=== PATIENT | male | born 1960 | race Caucasian/White ===

== ENCOUNTER 2016-03-08 07:11 | Emergency (ER) | payer BC ==
[2016-03-08 07:34] VITALS: RESP 18
[2016-03-08] MEDS ORDERED: ASPIRIN 81 MG CHEW PO STA (07:36)
--- NOTE | 2016-03-08 07:40 | ED ---
Chest Pain HPI - General Chief Complaint: Chest Pain Stated Complaint: chest pain Time Seen by Provider: 03/08/16 07:30 Source: patient, RN notes reviewed Mode of arrival: ambulatory Limitations: no limitations - History of Present Illness Initial Comments: This patient is a 56-year-old man who presents to be evaluated for chest pains of been going on over the past day to 2. He indicates substernal area and states that he now also has pain in his right shoulder. The patient believes he may have injured his shoulder while working. Patient had seen his physician earlier and was started on medication for he believes bronchitis. MD Complaint: chest pain -: days(s) Pain Location: substernal Pain Radiation: RUE (Right shoulder) Severity: moderate Quality: aching Consistency: constant Improves With: nothing Worsens With: nothing Other Symptoms: cough - Related Data Home Medications Medication Instructions Recorded Confirmed ALPRAZolam [Xanax] 1 mg PO TID 08/03/13 03/08/16 Esomeprazole Magnesium [NexIUM] 40 mg PO DAILY 08/03/13 03/08/16 Venlafaxine HCl [Effexor XR] 75 mg PO BID 08/03/13 03/08/16 Nitroglycerin Sl Tabs [Nitrostat] 0.4 mg SUBLINGUAL Q5M PRN 01/27/15 03/08/16 Acetaminophen Tab [Tylenol Tab] 1,000 mg PO Q6HR PRN 03/08/16 03/08/16 Aspirin 81 mg PO DAILY 03/08/16 03/08/16 Atorvastatin [Lipitor] 40 mg PO HS 03/08/16 03/08/16 Hydrochlorothiazide [Hydrodiuril] 25 mg PO DAILY 03/08/16 03/08/16 Levofloxacin [Levaquin] 500 mg PO DAILY 03/08/16 03/08/16 Losartan Potassium [Cozaar] 100 mg PO DAILY 03/08/16 03/08/16 Previous Rx's Medication Instructions Recorded Clopidogrel [Plavix] 75 mg PO DAILY #90 tab 01/29/15 Metoprolol Tartrate [Lopressor] 25 mg PO BID #180 tab 01/29/15 Azithromycin [Zithromax Z-pack] 250 mg PO DIRECTED #6 tab 03/08/16 predniSONE 60 mg PO DAILY #30 tab 03/08/16 Allergies Allergy/AdvReac Type Severity Reaction Status Date / Time Penicillins Allergy Rash/Hives Verified 03/08/16 08:45 Review of Systems ROS Statement: Those systems with pertinent positive or pertinent negative responses have been documented in the HPI. ROS Other: All systems not noted in ROS Statement are negative. EKG Findings - EKG Results: EKG: interpreted by DALY WHEELER, sinus rhythm (Rate 63 bpm), normal axis, normal QRS, normal ST/T Past Medical History Past Medical History: Coronary Artery Disease (CAD), Cancer, Chest Pain / Angina , COPD, CVA/TIA, GERD/Reflux, Hearing Disorder / Deafness, Hyperlipidemia, Hypertension, Osteoarthritis (OA), Prostate Disorder Additional Past Medical History / Comment(s): Other HX: barretts esophagus, hiatal hernia, melanoma removed from L shoulder, possible TIA, generalized arthiritis. History of Any Multi-Drug Resistant Organisms: None Reported Past Surgical History: Heart Catheterization, Heart Catheterization With Stent, Hernia Repair, Orthopedic Surgery Additional Past Surgical History / Comment(s): Ccath about 2004 which was normal , hilario foot surgery achilles tendons, melanoma removed from left shoulder, a total of 5 bilateral inguinal hernia repairs, EGDs. Past Anesthesia/Blood Transfusion Reactions: No Reported Reaction Additional Past Anesthesia/Blood Transfusion Reaction / Comment(s): Pt has never recieved blood. Date of Last Stent Placement:: Past Psychological History: Anxiety, Depression Additional Psychological History / Comment(s): Pt resides with his spouse. He is independent. He uses no assistive device. He drives a car. Smoking Status: Former smoker Past Alcohol Use History: Rare Additional Past Alcohol Use History / Comment(s): Pt started smoking in 1981. Past Drug Use History: None Reported - Past Family History Father Family Medical History: Myocardial Infarction ([place]) Additional Family Medical History / Comment(s): mi in his 40's Mother Family Medical History: Diabetes Mellitus, Hypertension Additional Family Medical History / Comment(s): Lupus General Exam Limitations: no limitations Course Vital Signs 03/08/16 03/08/16 03/08/16 07:30 08:52 11:32 Temperature 98.4 F Pulse Rate 64 54 L 71 Respiratory 18 18 Rate Blood Pressure 113/76 104/74 O2 Sat by Pulse 99 100 Oximetry 03/08/16 03/08/16 11:40 11:42 Temperature Pulse Rate 72 84 Respiratory 18 Rate Blood Pressure 105/68 O2 Sat by Pulse 100 Oximetry Disposition Clinical Impression: Bronchitis Disposition: HOME SELF-CARE Condition: Fair Instructions: Acute Bronchitis (ED) Prescriptions: Azithromycin [Zithromax Z-pack] 250 mg PO DIRECTED #6 tab predniSONE 60 mg PO DAILY #30 tab Referrals: Emiliano Cheng MD [Primary Care Provider] - 1-2 days
[2016-03-08 07:48] LABS: Basophils # (A) 0.1 k/uL (0-0.2); Basophils % (A) 1 %; CH 31.4; Eosinophils % (A) 0 %; HCT 43.4 % (39.0-53.0); HDW 2.79; HGB 14.9 gm/dL (13.0-17.5); Luc # (Auto) 0.08; Luc % (Auto) 1; Lymphocytes # (A) 1.3 k/uL (1.0-4.8); Lymphocytes % (A) 18 %; MCH 30.1 pg (25.0-35.0); MCHC 34.3 g/dL (31.0-37.0); MCV 87.7 fL (80.0-100.0); Mean Platelet Volume 7.4; Monocytes # (A) 0.5 k/uL (0-1.0); Monocytes % (A) 6 %; Neutrophils # (A) 5.7 k/uL (1.3-7.7); Neutrophils % (A) 74 %; RBC 4.96 m/uL (4.30-5.90); RDW 12.5 % (11.5-15.5); WBC 7.6 k/uL (3.8-10.6); WBC (Perox) 7.62
[2016-03-08 08:02] LABS: ALT 62 U/L (21-72); AST 35 U/L (17-59); Alkaline Phosphatase 67 U/L (38-126); Amylase <30 U/L (30-110); Anion Gap 9 mmol/L; Blood Urea Nitrogen 17 mg/dL (9-20); Calcium 9.6 mg/dL (8.4-10.2); Carbon Dioxide 27 mmol/L (22-30); Chloride 105 mmol/L (98-107); Glucose 107 mg/dL (74-99); Magnesium 1.8 mg/dL (1.6-2.3); Non-African American GFR(MDRD) >60 (>60 ml/min/1.73 sqM); Potassium 4.2 mmol/L (3.5-5.1); Sodium 141 mmol/L (137-145); Total Bilirubin 0.4 mg/dL (0.2-1.3); Total Protein 6.3 g/dL (6.3-8.2)
--- NOTE | 2016-03-08 08:06 | XR ---
EXAMINATION TYPE: XR chest 2V DATE OF EXAM: 03/08/2016 7:52 AM COMPARISON: 03/14/2015 HISTORY: 56-year-old male with chest pain this morning TECHNIQUE: PA and lateral views FINDINGS: The cardiomediastinal silhouette, aorta, and pulmonary vasculature are within normal limits. There is mild hyperinflation with flattening of the hemidiaphragms and increased retrosternal clear space. Ot herwise, lungs and pleural spaces are clear. IMPRESSION: Suspect underlying emphysema. Otherwise, no acute cardiopulmonary process.
[2016-03-08 08:17] LABS: Creatine Kinase 83 U/L (55-170)
[2016-03-08 08:29] LABS: Creatine Kinase MB 1.5 ng/mL (0.0-2.4); Troponin I <0.012 ng/mL (0.000-0.034)
[2016-03-08] MEDS ORDERED: ALBUTEROL NEBULIZED 2.5 MG/3 ML INHALATION STA (11:02)
[2016-03-08] MEDS ORDERED: HYDROcodone/APAP 5-325MG 1 EACH TAB PO STA (11:36)
[2016-03-08] MEDS ORDERED: predniSONE 20 MG TAB PO STA (12:18)
[2016-03-08] MEDS ORDERED: AZITHROMYCIN 500 MG TAB PO STA (12:18)
[2016-03-08 12:54] LABS: Appearance,Urine Clear (Clear); Bilirubin,Urine Negative (Negative); Glucose,Urine (UA) Negative (Negative); Ketones,Urine Negative (Negative); Leukocyte Esterase,Urine Negative (Negative); Nitrite,Urine Negative (Negative); PH, Urine 6.5 (5.0-8.0); Protein,Urine Negative (Negative); Specific Gravity,Urine 1.013 (1.001-1.035); UA Billing (MACRO vs. MICRO) CHEM; Urobilinogen,Urine <2.0 mg/dL (<2.0)
[2016-03-08 13:08] VITALS: BP 97/63; PULSE 80; TEMP 98.2
== END 2016-03-08 13:08 | disposition home or self-care (01) ==
LOC: EC 07:11
DX: J40 Bronchitis, not specified as acute or chronic (principal); Z79.899 Other long term (current) drug therapy; K21.9 Gastro-esophageal reflux disease without esophagitis; Z79.82 Long term (current) use of aspirin; E78.5 Hyperlipidemia, unspecified; I10 Essential (primary) hypertension; Z88.0 Allergy status to penicillin; I25.10 Atherosclerotic heart disease of native coronary artery without angina pectoris; Z86.73 Personal history of transient ischemic attack (TIA), and cerebral infarction without residual deficits; Z95.5 Presence of coronary angioplasty implant and graft; Z87.891 Personal history of nicotine dependence; F41.9 Anxiety disorder, unspecified; F32.9 Major depressive disorder, single episode, unspecified
CPT/HCPCS: 36415; 94640; 93005; 85379; 83880; 80053; 82150; 82550; 82553; 83690; 83735; 84484; 85025; 81003; 71020; 99285; J7512

== ENCOUNTER 2016-06-07 10:14 | Emergency (ER) | payer BC ==
[2016-06-07 10:26] VITALS: BP 121/64; PULSE 76; RESP 18; TEMP 97.6
[2016-06-07] MEDS ORDERED: ORPHENADRINE 30 MG/ML 2 ML VIAL IM STA (11:18)
[2016-06-07] MEDS ORDERED: KETOROLAC 60 MG/2 ML VIAL IM STA (11:18)
--- NOTE | 2016-06-07 11:23 | ED ---
General Adult HPI - General Chief complaint: Neck Pain/Injury Stated complaint: NECK PAIN, LEFT SHOULDER NUMBNESS, HEART Hx Time Seen by Provider: 06/07/16 11:00 Source: patient, RN notes reviewed Mode of arrival: wheelchair Limitations: no limitations - History of Present Illness Initial comments: This is a 56-year-old male who presents emergency Department complaining of left -sided neck pain. Patient states she does not heavy lifting at work it started yesterday at work about 2:00 he got progressively worse until he got home. Patient states looking to the left hurts but he is able to have full range of motion. Patient states that he has no numbness weakness. Patient states is no trauma or blunt injury. Patient states that warm shower last evening seemed to help it. Patient states he took a Windber that did not seem to help at all. Patient states she went to work today and as he worked more and more it got worse. Patient denies any fever or chills. Patient denies any other symptoms. Patient denies any chest pain palpitations difficult breathing shortness of breath. Patient has no other complaints besides this neck pain on the left. Which is exacerbated by movement of the neck or lifting of the trapezius muscle - Related Data Home Medications Medication Instructions Recorded Confirmed ALPRAZolam [Xanax] 1 mg PO TID 08/03/13 06/07/16 Esomeprazole Magnesium [NexIUM] 40 mg PO DAILY 08/03/13 06/07/16 Venlafaxine HCl [Effexor XR] 75 mg PO BID 08/03/13 06/07/16 Nitroglycerin Sl Tabs [Nitrostat] 0.4 mg SUBLINGUAL Q5M PRN 01/27/15 06/07/16 Acetaminophen Tab [Tylenol Tab] 1,000 mg PO Q6HR PRN 03/08/16 06/07/16 Aspirin 81 mg PO DAILY 03/08/16 06/07/16 Atorvastatin [Lipitor] 40 mg PO HS 03/08/16 06/07/16 Hydrochlorothiazide [Hydrodiuril] 25 mg PO DAILY 03/08/16 06/07/16 Losartan Potassium [Cozaar] 100 mg PO DAILY 03/08/16 06/07/16 Previous Rx's Medication Instructions Recorded Clopidogrel [Plavix] 75 mg PO DAILY #90 tab 01/29/15 Metoprolol Tartrate [Lopressor] 25 mg PO BID #180 tab 01/29/15 Cyclobenzaprine [Flexeril] 10 mg PO TID #20 tab 06/07/16 Ibuprofen [Motrin] 600 mg PO Q6HR PRN #20 tab 06/07/16 Allergies Allergy/AdvReac Type Severity Reaction Status Date / Time Penicillins Allergy Rash/Hives Verified 06/07/16 10:25 Review of Systems ROS Statement: Those systems with pertinent positive or pertinent negative responses have been documented in the HPI. ROS Other: All systems not noted in ROS Statement are negative. Past Medical History Past Medical History: Coronary Artery Disease (CAD), Cancer, Chest Pain / Angina , COPD, CVA/TIA, GERD/Reflux, Hearing Disorder / Deafness, Hyperlipidemia, Hypertension, Osteoarthritis (OA), Prostate Disorder Additional Past Medical History / Comment(s): Other HX: barretts esophagus, hiatal hernia, melanoma removed from L shoulder, possible TIA, generalized arthiritis. History of Any Multi-Drug Resistant Organisms: None Reported Past Surgical History: Heart Catheterization, Heart Catheterization With Stent, Hernia Repair, Orthopedic Surgery Additional Past Surgical History / Comment(s): Ccath about 2004 which was normal , hilario foot surgery achilles tendons, melanoma removed from left shoulder, a total of 5 bilateral inguinal hernia repairs, EGDs. Past Anesthesia/Blood Transfusion Reactions: No Reported Reaction Additional Past Anesthesia/Blood Transfusion Reaction / Comment(s): Pt has never recieved blood. Date of Last Stent Placement:: Past Psychological History: Anxiety, Depression Additional Psychological History / Comment(s): Pt resides with his spouse. He is independent. He uses no assistive device. He drives a car. Smoking Status: Former smoker Past Alcohol Use History: Rare Additional Past Alcohol Use History / Comment(s): Pt started smoking in 1981. Past Drug Use History: None Reported - Past Family History Father Family Medical History: Myocardial Infarction ([place]) Additional Family Medical History / Comment(s): mi in his 40's Mother Family Medical History: Diabetes Mellitus, Hypertension Additional Family Medical History / Comment(s): Lupus General Exam - General Exam Comments Initial Comments: GENERAL Patient is well-developed and well-nourished. Patient is in mild distress. EYES Patient's pupils are equal and round. Extraocular motion is intact SKIN Unremarkable NEURO The patient is alert and oriented 3 PYSCH Patient has normal interpersonal interactions. MUSCULOSKELETAL Patient's left sided trapezius muscle is extremely tender to palpation per patient does have full range of motion of his neck. Limitations: no limitations Course Vital Signs 06/07/16 10:22 Temperature 97.6 F Pulse Rate 76 Respiratory 18 Rate Blood Pressure 121/64 O2 Sat by Pulse 97 Oximetry Disposition Clinical Impression: Strain of neck muscle Disposition: HOME SELF-CARE Condition: Good Instructions: Cervical Strain (ED) Prescriptions: Cyclobenzaprine [Flexeril] 10 mg PO TID #20 tab Ibuprofen [Motrin] 600 mg PO Q6HR PRN #20 tab PRN Reason: For pain Referrals: Emiliano Cheng MD [Primary Care Provider] - 1-2 days Time of Disposition: 11:22
== END 2016-06-07 12:07 | disposition home or self-care (01) ==
LOC: EC 10:14
DX: S16.1XXA Strain of muscle, fascia and tendon at neck level, initial encounter (principal); E78.5 Hyperlipidemia, unspecified; I10 Essential (primary) hypertension; K21.9 Gastro-esophageal reflux disease without esophagitis; F32.9 Major depressive disorder, single episode, unspecified; F41.9 Anxiety disorder, unspecified; I25.10 Atherosclerotic heart disease of native coronary artery without angina pectoris; Z79.899 Other long term (current) drug therapy; Z88.0 Allergy status to penicillin; Z95.5 Presence of coronary angioplasty implant and graft; X50.9XXA Other and unspecified overexertion or strenuous movements or postures, initial encounter
CPT/HCPCS: 99283; 96372 ×2; J2360; J1885

== ENCOUNTER → 2016-07-05 | Outpatient (CLI) | payer BC ==
--- NOTE | 2016-07-05 13:12 | XR ---
EXAMINATION TYPE: XR foot complete LT DATE OF EXAM ORDERED: 07/05/2016 12:18 PM HISTORY: M79.672 pain in left foot. FINDINGS: There are moderate degenerative changes within the left first MTP joint. No fracture, dislo cation or other acute osseous lesion is seen. There is a plantar calcaneal spur.. IMPRESSION: 1. NO ACUTE OSSEOUS LESION. 2. DEGENERATIVE CHANGE. 3. CALCANEAL SPUR.
== END | disposition home or self-care (01) ==
LOC: RADXRMAIN 11:52
PROVIDERS: ATTEND Internal Medicine
DX: M77.32 Calcaneal spur, left foot (principal)

== ENCOUNTER → 2016-07-30 | Outpatient (CLI) | payer BC ==
--- NOTE | 2016-07-30 12:52 | XR ---
EXAMINATION TYPE: XR lumbar spine 2 or 3V DATE OF EXAM: 07/30/2016 CLINICAL HISTORY: Low back pain per order. Herniated L4-L5 discs per patient TECHNIQUE: Frontal and lateral images of the lumbar spine are obtained. COMPARISON: Lumbar spine x-ray January 16, 2009. MRI lumbar spine November 05, 2012. FINDINGS: There are 5 lumbar type vertebral bodies identified. The lumbar spine shows satisfactory alignment without evidence of acute fracture or dislocation. Vertebral body heights are within normal limits. There is redemonstration of mild disc space narrowing with anterior spurring L2-L3 level. Th ere is redemonstration of moderate disc space narrowing with mild spurring L4-L5 level. There is rede monstration of mild disc space narrowing L5-S1 level. Some facet arthropathy lower lumbar levels is p resent. There are coils from prior hernia likely inguinal repair surgery left pelvis partially imaged . IMPRESSION: Multilevel degenerative changes in lumbar spine as detailed above not significantly mathews ed from 2013 MRI.
== END | disposition home or self-care (01) ==
LOC: RADXRMAIN 11:47
PROVIDERS: ATTEND Internal Medicine
DX: M47.816 Spondylosis without myelopathy or radiculopathy, lumbar region (principal)
CPT/HCPCS: 72100

== ENCOUNTER → 2016-09-18 | Outpatient (CLI) | payer BC ==
--- NOTE | 2016-09-18 17:52 | CT ---
EXAMINATION TYPE: CT abdomen pelvis w con DATE OF EXAM: 09/18/2016 COMPARISON: October 15, 2011 HISTORY: Mid abdominal pain x [address] DLP: 426.80 mGycm CONTRAST: CT scan of the abdomen and pelvis is performed with Oral Contrast and with IV Contrast, patient injec alla with 100 mL of Omnipaque 300. FINDINGS: LUNG BASES-: No visible nodule. No infiltrate. LIVER/GB: No calcified gallstones. No space occupying hepatic lesion. Biliary tree is of normal ca liber. PANCREAS: No inflammation. No distinct mass. SPLEEN: No splenic enlargement. No lesion seen. ADRENALS: No nodule. No thickening. KIDNEYS/BLADDER: No hydronephrosis. No nephrolithiasis. No disctinct renal mass. Urinary bladder g rossly unremarkable. BOWEL: Normal appendix. Normal bowel caliber. No inflammation. Sigmoid diverticulosis without diver ticulitis. Poor distention of the stomach limiting evaluation. GENITAL ORGANS: No gross abnormality. LYMPH NODES: No greater than 1cm abdominal or pelvic lymph nodes are appreciated. AORTA: No significant abnormality. OSSEOUS STRUCTURES: No significant abnormality is seen. OTHER: No significant additional abnormality is seen. IMPRESSION: 1. No acute intra-abdominal process.
== END | disposition home or self-care (01) ==
LOC: RADCTMAIN 15:57
PROVIDERS: ATTEND Internal Medicine
DX: R10.9 Unspecified abdominal pain (principal)
CPT/HCPCS: 74177; Q9967

== ENCOUNTER 2016-11-21 11:25 | Day surgery (SDC) | payer BC ==
[2016-11-19 11:57] VITALS: BMI 22.6
[2016-11-21 11:57] VITALS: RESP 16; TEMP 97.4
[2016-11-21] MEDS ORDERED: LIDOCAINE 1% 20 ML VIAL (10MG/ML) FOR IV START INTRADERMA ONE (12:05)
[2016-11-21] MEDS: LACTATED RINGERS 1,000 ML IV SCH ×2 (12:05→12:42)
[2016-11-21] MEDS ORDERED: MIDAZOLAM 2 MG/2 ML VIAL ONE (12:44)
[2016-11-21] MEDS ORDERED: PROPOFOL 10 MG/ML 20 ML VIAL IV ONE (12:44)
[2016-11-21] MEDS ORDERED: LIDOCAINE 1% INJ 10MG/ML (20 ML MDV) ONE (12:44)
[2016-11-21] MEDS ORDERED: fentaNYL (PF) 50 MCG/ML 2 ML AMP ONE (12:44)
--- NOTE | 2016-11-21 13:10 | P.PCN ---
Date of Procedure: 11/21/16 Procedure(s) Performed: Procedure: Esophagogastroduodenoscopy and biopsy. Preoperative diagnosis: History of Tran's esophagus. Postoperative diagnosis: 1. Short segment Tran's esophagus multiple biopsies obtained. 2. Small hiatal hernia. 3. Mild antral gastritis and minimal duodenitis. Preparation and sedation: Was provided by anesthesia. Brief clinical history: The patient is a 56-year-old male with history of Tran's esophagus. His last exam was in July 2014. This evaluation is part of his surveillance for dysplasia. The patient is also reporting heartburn and reflux as well as dysphagia despite taking PPI twice a day dosing. Procedure: With the patient on his left lateral decubitus position and after informed consent and adequate sedation the Olympus-GIF 160 video upper endoscope was used and was advanced under direct vision through the cricopharyngeus down the esophagus. GE junction was around 39 cm from the incisors and there was a short segment of Tran's then we encountered a small hiatal hernia. There were no strictures and there was no evidence of acute esophagitis. The endoscope was then passed into the stomach which was insufflated with air and inspected in detail including the retroflex view in the cardia. Finally, the endoscope was passed through the pylorus into the duodenum. The stomach showed mild mottling and erythema in the antrum and there was minimal erythema in the duodenum. I obtained biopsies from the duodenum, antrum and esophagus as well as biopsies from the Tran's segment of the esophagus before the endoscope was withdrawn. Disposition: The patient tolerated the procedure well. Plan: The patient was reassured. Will await biopsy results. I anticipate repeating this exam in 2 years or less. He will follow up with you as planned.
[2016-11-21 13:31] VITALS: BP 104/71; PULSE 59
== END 2016-11-21 14:03 | disposition home or self-care (01) ==
LOC: ORWHC2ENDO 11:25
DX: K22.70 Barrett's esophagus without dysplasia (principal); K29.50 Unspecified chronic gastritis without bleeding; K29.80 Duodenitis without bleeding; K44.9 Diaphragmatic hernia without obstruction or gangrene; K21.9 Gastro-esophageal reflux disease without esophagitis; I25.10 Atherosclerotic heart disease of native coronary artery without angina pectoris; I12.9 Hypertensive chronic kidney disease with stage 1 through stage 4 chronic kidney disease, or unspecified chronic kidney disease; N18.9 Chronic kidney disease, unspecified; M19.90 Unspecified osteoarthritis, unspecified site; N40.0 Benign prostatic hyperplasia without lower urinary tract symptoms; J44.9 Chronic obstructive pulmonary disease, unspecified; E78.5 Hyperlipidemia, unspecified; Z95.5 Presence of coronary angioplasty implant and graft; F17.200 Nicotine dependence, unspecified, uncomplicated; Z79.82 Long term (current) use of aspirin; Z79.891 Long term (current) use of opiate analgesic; Z79.899 Other long term (current) drug therapy; Z88.0 Allergy status to penicillin
CPT/HCPCS: 88305; 88342; 43239; J2250; J2001; J3010; J2704

== ENCOUNTER → 2017-03-21 | Outpatient (CLI) | payer BC ==
--- NOTE | 2017-03-21 14:34 | XR ---
EXAMINATION TYPE: XR chest 2V DATE OF EXAM: 03/21/2017 COMPARISON: 12/24/2016 HISTORY: Presurgical clearance TECHNIQUE: Frontal and lateral views of the chest are obtained. FINDINGS: There is no focal air space opacity, pleural effusion, or pneumothorax seen. The cardiac silhouette size is within normal limits. The osseous structures are intact. There is reconstruction pulmonary hyperinflation and flattening of the diaphragms with biapical lucency compatible with unde rlying COPD. Mild multilevel degenerative changes of the thoracic spine are noted. There is increased anterior posterior diameter of the chest. IMPRESSION: 1. No acute cardiopulmonary process. 2. Radiographic sequela of COPD as seen on the prior exam.
== END | disposition home or self-care (01) ==
LOC: RADXRMAIN 14:15
PROVIDERS: ATTEND Internal Medicine
DX: Z01.818 Encounter for other preprocedural examination (principal); J44.9 Chronic obstructive pulmonary disease, unspecified
CPT/HCPCS: 71046

== ENCOUNTER 2017-04-15 23:03 | Emergency (ER) | payer BC ==
[2017-04-15] MEDS ORDERED: IBUPROFEN 600 MG TAB PO STA (23:29)
[2017-04-15] MEDS ORDERED: SODIUM CHLORIDE 0.9% 1,000 ML IV STA (23:29)
[2017-04-15] MEDS ORDERED: ONDANSETRON 4 MG/2 ML VIAL IVP STA (23:30)
[2017-04-15] MEDS ORDERED: MORPHINE SULFATE 4 MG/ML SYRINGE IVP STA (23:30)
--- NOTE | 2017-04-15 23:40 | ED ---
Fever HPI - General Chief Complaint: Fever Stated Complaint: Post Sx- Fever Time Seen by Provider: 04/15/17 23:22 Source: patient, RN notes reviewed Mode of arrival: ambulatory Limitations: no limitations - History of Present Illness Initial Comments: 57-year-old male presents emergency Department chief complaint fever. Patient' s felt a fever last 24 hours. Patient is concerned that she's had back surgery [address] karen bridges. Patient states that he is in no drainage or increased swelling of his surgical site. Patient states he did have a sore throat and some ear pain after surgery but assuming this is from being intubated. He denies any diarrhea or constipation states she's been having regular bowel movements because he's been taken stool softeners. He denies any dysuria or hematuria. Patient denies any cough or chest congestion. Denies any sick contacts. Patient took 1 g of acetaminophen a few hours ago. He has not taken any recent ibuprofen and denies any restrictions on anti- inflammatories. - Related Data Home Medications Medication Instructions Recorded Confirmed ALPRAZolam [Xanax] 1 mg PO TID 08/03/13 04/15/17 Esomeprazole Magnesium [NexIUM] 40 mg PO BID 08/03/13 04/15/17 Venlafaxine HCl [Effexor XR] 75 mg PO BID 08/03/13 04/15/17 Atorvastatin [Lipitor] 40 mg PO DAILY 03/08/16 04/15/17 Acetaminophen [Tylenol Extra 1,000 mg PO Q6H PRN 04/15/17 04/15/17 Strength] Allergies Allergy/AdvReac Type Severity Reaction Status Date / Time lorazepam [From Ativan] Allergy Unknown Verified 04/15/17 23:43 Penicillins Allergy Rash/Hives Verified 04/15/17 23:43 Review of Systems ROS Statement: Those systems with pertinent positive or pertinent negative responses have been documented in the HPI. ROS Other: All systems not noted in ROS Statement are negative. Past Medical History Past Medical History: Coronary Artery Disease (CAD), Cancer, Chest Pain / Angina , COPD, GERD/Reflux, Hearing Disorder / Deafness, Hyperlipidemia, Hypertension, Myocardial Infarction ([place]), Osteoarthritis (OA), Prostate Disorder Additional Past Medical History / Comment(s): barretts esophagus, hiatal hernia , melanoma removed from L shoulder, Herniated discs with back pain-(recent steroid injections), Torn retina right eye., Blood in stool Last Myocardial Infarction Date:: FEB 2014 History of Any Multi-Drug Resistant Organisms: None Reported Past Surgical History: Back Surgery, Heart Catheterization, Heart Catheterization With Stent, Hernia Repair, Orthopedic Surgery Additional Past Surgical History / Comment(s): hilario foot surgery achilles tendons , melanoma removed from left shoulder, a total of 5 bilateral inguinal hernia repairs, EGDs. Heart Cath with stents Feb 2014., FATTY TUMOR REMOVED RIGHT BREAST AND LEG., EGD (11/21/16) Past Anesthesia/Blood Transfusion Reactions: No Reported Reaction Additional Past Anesthesia/Blood Transfusion Reaction / Comment(s): . Date of Last Stent Placement:: FEB-2014 Past Psychological History: Anxiety, Depression Smoking Status: Former smoker Past Alcohol Use History: None Reported Past Drug Use History: None Reported - Past Family History Father Family Medical History: Myocardial Infarction ([place]) Additional Family Medical History / Comment(s): mi in his 40's Mother Family Medical History: Diabetes Mellitus, Hypertension Additional Family Medical History / Comment(s): Lupus General Exam Limitations: no limitations General appearance: alert, in no apparent distress Head exam: Present: atraumatic, normocephalic, normal inspection Eye exam: Present: normal appearance, PERRL, EOMI. Absent: scleral icterus, conjunctival injection, periorbital swelling ENT exam: Present: normal exam, normal oropharynx, mucous membranes moist, TM's normal bilaterally, normal external ear exam Neck exam: Present: normal inspection, full ROM. Absent: tenderness, meningismus, lymphadenopathy Respiratory exam: Present: normal lung sounds bilaterally. Absent: respiratory distress, wheezes, rales, rhonchi, stridor Cardiovascular Exam: Present: regular rate, normal rhythm, normal heart sounds. Absent: systolic murmur, diastolic murmur, rubs, gallop, clicks GI/Abdominal exam: Present: soft, normal bowel sounds. Absent: distended, tenderness, guarding, rebound, rigid Extremities exam: Present: other (Pedal pulses equal bilaterally) Back exam: Present: tenderness. Absent: normal inspection (2 surgical sites noted with socrates no erythema no drainage) Skin exam: Present: warm, dry, intact, normal color. Absent: rash Course Vital Signs 04/15/17 04/16/17 23:06 02:09 Temperature 101.6 F H 99.2 F Pulse Rate 88 86 Respiratory 18 16 Rate Blood Pressure 105/88 138/76 O2 Sat by Pulse 97 96 Oximetry Medical Decision Making - Medical Decision Making 57-year-old male presented Department chief complaint of fever. Patient is concerned has he is a days postop back surgery. Patient had lab work, x-ray, urinalysis, influenza, CT of his lumbar spine there is no acute findings this most likely is a viral infection. I did discuss that he needs to notify his surgeon in the morning that he does have a fever and that he needs to have very close follow-up and return for any worsening or concerning symptoms. Patient agrees to plan. Patient updated on results including family. - Lab Data Result diagrams: 04/15/17 23:26 04/15/17 23:26 Lab Results 04/15/17 04/15/17 04/15/17 Range/Units 23:26 23:26 23:26 WBC 11.6 H (3.8-10.6) k/uL RBC 3.82 L (4.30-5.90) m/uL Hgb 11.7 L (13.0-17.5) gm/dL Hct 35.7 L (39.0-53.0) % MCV 93.4 (80.0-100.0) fL MCH 30.6 (25.0-35.0) pg MCHC 32.8 (31.0-37.0) g/dL RDW 12.2 (11.5-15.5) % Plt Count 317 (150-450) k/uL Neutrophils % 88 % Lymphocytes % 6 % Monocytes % 4 % Eosinophils % 2 % Basophils % 0 % Neutrophils # 10.3 H (1.3-7.7) k/uL Lymphocytes # 0.7 L (1.0-4.8) k/uL Monocytes # 0.4 (0-1.0) k/uL Eosinophils # 0.2 (0-0.7) k/uL Basophils # 0.0 (0-0.2) k/uL Sodium 138 (137-145) mmol/L Potassium 3.5 (3.5-5.1) mmol/L Chloride 105 (98-107) mmol/L Carbon Dioxide 25 (22-30) mmol/L Anion Gap 8 mmol/L BUN 10 (9-20) mg/dL Creatinine 1.00 (0.66-1.25) mg/dL Est GFR (MDRD) Af Amer >60 (>60 ml/min/1.73 sqM) Est GFR (MDRD) Non-Af >60 (>60 ml/min/1.73 sqM) Glucose 112 H (74-99) mg/dL Plasma Lactic Acid Jerome (0.7-2.0) mmol/L Calcium 9.1 (8.4-10.2) mg/dL Total Bilirubin 0.2 (0.2-1.3) mg/dL AST 18 (17-59) U/L ALT 51 (21-72) U/L Alkaline Phosphatase 79 (38-126) U/L Total Protein 5.3 L (6.3-8.2) g/dL Albumin 3.1 L (3.5-5.0) g/dL Urine Color Urine Appearance (Clear) Urine pH (5.0-8.0) Ur Specific [place] (1.001-1.035) Urine Protein (Negative) Urine Glucose (UA) (Negative) Urine Ketones (Negative) Urine Blood (Negative) Urine Nitrite (Negative) Urine Bilirubin (Negative) Urine Urobilinogen (<2.0) mg/dL Ur Leukocyte Esterase (Negative) Urine RBC (0-5) /hpf Urine WBC (0-5) /hpf Urine Mucus (None) /hpf Influenza Type A RNA Not Detected (Not Detectd) Influenza Type B (PCR) Not Detected (Not Detectd) 04/15/17 04/16/17 Range/Units 23:26 01:30 WBC (3.8-10.6) k/uL RBC (4.30-5.90) m/uL Hgb (13.0-17.5) gm/dL Hct (39.0-53.0) % MCV (80.0-100.0) fL MCH (25.0-35.0) pg MCHC (31.0-37.0) g/dL RDW (11.5-15.5) % Plt Count (150-450) k/uL Neutrophils % % Lymphocytes % % Monocytes % % Eosinophils % % Basophils % % Neutrophils # (1.3-7.7) k/uL Lymphocytes # (1.0-4.8) k/uL Monocytes # (0-1.0) k/uL Eosinophils # (0-0.7) k/uL Basophils # (0-0.2) k/uL Sodium (137-145) mmol/L Potassium (3.5-5.1) mmol/L Chloride (98-107) mmol/L Carbon Dioxide (22-30) mmol/L Anion Gap mmol/L BUN (9-20) mg/dL Creatinine (0.66-1.25) mg/dL Est GFR (MDRD) Af Amer (>60 ml/min/1.73 sqM) Est GFR (MDRD) Non-Af (>60 ml/min/1.73 sqM) Glucose (74-99) mg/dL Plasma Lactic Acid Jerome 1.2 (0.7-2.0) mmol/L Calcium (8.4-10.2) mg/dL Total Bilirubin (0.2-1.3) mg/dL AST (17-59) U/L ALT (21-72) U/L Alkaline Phosphatase (38-126) U/L Total Protein (6.3-8.2) g/dL Albumin (3.5-5.0) g/dL Urine Color Yellow Urine Appearance Clear (Clear) Urine pH 6.5 (5.0-8.0) Ur Specific [place] >1.050 H (1.001-1.035) Urine Protein 1+ H (Negative) Urine Glucose (UA) Negative (Negative) Urine Ketones Negative (Negative) Urine Blood Trace H (Negative) Urine Nitrite Negative (Negative) Urine Bilirubin Negative (Negative) Urine Urobilinogen <2.0 (<2.0) mg/dL Ur Leukocyte Esterase Negative (Negative) Urine RBC 3 (0-5) /hpf Urine WBC 1 (0-5) /hpf Urine Mucus Many H (None) /hpf Influenza Type A RNA (Not Detectd) Influenza Type B (PCR) (Not Detectd) Disposition Clinical Impression: Viral infection, Fever Disposition: HOME SELF-CARE Condition: Stable Instructions: Fever in Adults (ED), Viral Syndrome (ED) Additional Instructions: Please return to the Emergency Department if symptoms worsen or any other concerns. Referrals: Emiliano Cheng MD [Primary Care Provider] - 1-2 days Time of Disposition: 02:16
[2017-04-15 23:44] LABS: Basophils % (A) 0 %; Eosinophils # (A) 0.2 k/uL (0-0.7); Eosinophils % (A) 2 %; HCT 35.7 % (39.0-53.0); HGB 11.7 gm/dL (13.0-17.5); Lymphocytes # (A) 0.7 k/uL (1.0-4.8); Lymphocytes % (A) 6 %; MCH 30.6 pg (25.0-35.0); MCHC 32.8 g/dL (31.0-37.0); MCV 93.4 fL (80.0-100.0); Monocytes # (A) 0.4 k/uL (0-1.0); Monocytes % (A) 4 %; Neutrophils # (A) 10.3 k/uL (1.3-7.7); Neutrophils % (A) 88 %; Platelet Count 317 k/uL (150-450); RBC 3.82 m/uL (4.30-5.90); RDW 12.2 % (11.5-15.5); WBC 11.6 k/uL (3.8-10.6)
[2017-04-15 23:58] LABS: ALT 51 U/L (21-72); AST 18 U/L (17-59); Albumin 3.1 g/dL (3.5-5.0); Alkaline Phosphatase 79 U/L (38-126); Anion Gap 8 mmol/L; Blood Urea Nitrogen 10 mg/dL (9-20); Calcium 9.1 mg/dL (8.4-10.2); Carbon Dioxide 25 mmol/L (22-30); Chloride 105 mmol/L (98-107); Glucose 112 mg/dL (74-99); Potassium 3.5 mmol/L (3.5-5.1); Sodium 138 mmol/L (137-145); Total Bilirubin 0.2 mg/dL (0.2-1.3); Total Protein 5.3 g/dL (6.3-8.2)
--- NOTE | 2017-04-16 00:09 | XR ---
EXAMINATION TYPE: XR chest 2V DATE OF EXAM: 04/15/2017 COMPARISON: 03/21/2017 HISTORY: Fever TECHNIQUE: Frontal and lateral views of the chest are obtained. FINDINGS: Heart and mediastinum are normal. Lungs are clear. Diaphragm is normal. Bony thorax is int act. Pulmonary vascularity is normal. IMPRESSION: Normal chest. No evidence of bronchopneumonia. No change.
[2017-04-16] MEDS ORDERED: RX INFO: IV CONTRAST WAS GIVEN 1 EACH MISC MISCELLANE PRN (00:40)
--- NOTE | 2017-04-16 01:19 | CT ---
EXAMINATION TYPE: CT lumbar spine w con DATE OF EXAM: 04/16/2017 COMPARISON: NONE HISTORY: Pt. is 8 days Post lumbar disc surgery. fever and pain CT DLP: 611.30 mGycm Automated exposure control for dose reduction was used. CONTRAST: CT scan of the lumbar is performed with IV Contrast, patient injected with 100 mL of Omnipaque 300. Enhanced CT of the lumbar spine was performed. Bone and soft tissue window settings are submitted as well as coronal and sagittal reconstructions. Vertebra have normal alignment. There is narrowing at L4-5 disc space. There is disc prosthesis at L4 -5. There is posterior fusion surgery with pins and screws at L4 and L5. There is no compression frac ture. There is laminectomy of L4 on the left side. I see no focal bone destruction. There is no sign of a paraspinal mass. Sacroiliac joints appear normal. There is mild narrowing of the disc spaces and the remainder of the lumbar spine. IMPRESSION: Surgery at L4-5. No fracture. I see no complicating process. Minimal postsurgical changes with subcut aneous edema over the lower lumbar spine.
[2017-04-16 01:56] LABS: Appearance,Urine Clear (Clear); Bilirubin,Urine Negative (Negative); Blood,Urine Trace (Negative); Color,Urine Yellow; Glucose,Urine (UA) Negative (Negative); Ketones,Urine Negative (Negative); Leukocyte Esterase,Urine Negative (Negative); Mucus,Urine Many /hpf; Nitrite,Urine Negative (Negative); PH, Urine 6.5 (5.0-8.0); Protein,Urine 1+ (Negative); RBC,Urine 3 /hpf (0-5); Urobilinogen,Urine <2.0 mg/dL (<2.0); WBC,Urine 1 /hpf (0-5)
[2017-04-16 02:05] LABS: Specific Gravity,Urine >1.050 (1.001-1.035)
[2017-04-16 02:11] VITALS: BP 138/76; PULSE 86; RESP 16; TEMP 99.2
== END 2017-04-16 02:29 | disposition home or self-care (01) ==
LOC: EC 23:03
DX: B34.9 Viral infection, unspecified (principal); K21.9 Gastro-esophageal reflux disease without esophagitis; E78.5 Hyperlipidemia, unspecified; F32.9 Major depressive disorder, single episode, unspecified; F41.9 Anxiety disorder, unspecified; Z87.891 Personal history of nicotine dependence; Z88.8 Allergy status to other drugs, medicaments and biological substances; Z88.0 Allergy status to penicillin; Z79.899 Other long term (current) drug therapy; Z85.820 Personal history of malignant melanoma of skin
CPT/HCPCS: 36415; 80053; 83605; 85025; 81001; 87040; 87086; 87502; 71046; 72132; 99284; 96374; 96375; 96361; J2270; J2405; Q9967

== ENCOUNTER → 2017-06-25 | Outpatient (CLI) | payer BC ==
--- NOTE | 2017-06-25 16:03 | CT ---
EXAMINATION TYPE: CT abdomen w con DATE OF EXAM: 06/25/2017 COMPARISON: 09/18/2016 HISTORY: Mid abdominal pain x [address] DLP: 420.6 mGycm CONTRAST: CT scan of the abdomen is performed with Oral Contrast and with IV Contrast, patient injected with 1 00 mL of Isovue M300. FINDINGS: LUNG BASES-: No visible nodule. No infiltrate. LIVER/GB: No calcified gallstones. No space occupying hepatic lesion. Biliary tree is of normal ca liber. PANCREAS: No inflammation. No distinct mass. SPLEEN: No splenic enlargement. No lesion seen. ADRENALS: No nodule. No thickening. KIDNEYS/BLADDER: No hydronephrosis. No nephrolithiasis. No distinct renal mass. Urinary bladder g rossly unremarkable. BOWEL: Visualized portions of the small and large bowel appear to be within normal limits. Partially imaged normal-appearing appendix. LYMPH NODES: No greater than 1cm abdominal or pelvic lymph nodes are appreciated. AORTA: No significant abnormality. OSSEOUS STRUCTURES: Postoperative changes lumbar spine. OTHER: No significant additional abnormality is seen. IMPRESSION: 1. No significant abnormality to account for the patient's symptoms.
== END ==
LOC: RADCTMAIN 15:01
PROVIDERS: ATTEND Internal Medicine
DX: R10.9 Unspecified abdominal pain (principal)
CPT/HCPCS: 74160; Q9967

== ENCOUNTER 2017-07-14 13:45 | Emergency (ER) | payer BC ==
[2017-07-14 13:58] VITALS: RESP 18
[2017-07-14 14:45] LABS: Basophils % (A) 0 %; Eosinophils # (A) 0.1 k/uL (0-0.7); Eosinophils % (A) 2 %; HCT 47.6 % (39.0-53.0); Lymphocytes # (A) 1.7 k/uL (1.0-4.8); Lymphocytes % (A) 21 %; MCH 28.1 pg (25.0-35.0); MCHC 33.7 g/dL (31.0-37.0); MCV 83.5 fL (80.0-100.0); Mean Platelet Volume 7.5; Monocytes # (A) 0.5 k/uL (0-1.0); Monocytes % (A) 5 %; Neutrophils % (A) 71 %; Platelet Count 282 k/uL (150-450); RBC 5.69 m/uL (4.30-5.90); RDW 13.3 % (11.5-15.5); WBC 8.5 k/uL (3.8-10.6)
[2017-07-14 14:46] LABS: Appearance,Urine Clear (Clear); Bilirubin,Urine Negative (Negative); Blood,Urine Negative (Negative); Color,Urine Light Yellow; Glucose,Urine (UA) Negative (Negative); Ketones,Urine Negative (Negative); Leukocyte Esterase,Urine Negative (Negative); Nitrite,Urine Negative (Negative); PH, Urine 6.5 (5.0-8.0); Protein,Urine Negative (Negative); Specific Gravity,Urine 1.003 (1.001-1.035); Urobilinogen,Urine <2.0 mg/dL (<2.0)
[2017-07-14 14:58] LABS: ALT 40 U/L (21-72); AST 23 U/L (17-59); Albumin 4.5 g/dL (3.5-5.0); Alkaline Phosphatase 74 U/L (38-126); Amylase 38 U/L (30-110); Anion Gap 15 mmol/L; Blood Urea Nitrogen 8 mg/dL (9-20); Calcium 10.2 mg/dL (8.4-10.2); Carbon Dioxide 26 mmol/L (22-30); Chloride 106 mmol/L (98-107); Glucose 91 mg/dL (74-99); Lipase 109 U/L (23-300); Potassium 4.3 mmol/L (3.5-5.1); Sodium 147 mmol/L (137-145); Total Bilirubin 0.5 mg/dL (0.2-1.3)
[2017-07-14] MEDS ORDERED: SODIUM CHLORIDE 0.9% 1,000 ML IV STA (17:03)
--- NOTE | 2017-07-14 17:38 | ED ---
General Adult HPI - General Chief complaint: Abdominal Pain Stated complaint: abdominal pain Time Seen by Provider: 07/14/17 16:44 Source: patient, RN notes reviewed Mode of arrival: ambulatory Limitations: no limitations - History of Present Illness Initial comments: 57-year-old male presents to the emergency department for a chief complaint of abdominal pain 3 weeks. Patient states his pain is a lower abdominal pain. Patient states he has been having diarrhea for the past 2 days. Patient admits to nausea but states he has not vomited. Patient states he had a CAT scan about 3 weeks ago and was diagnosed with diverticulitis. Patient states he has been taking "two antibiotics" since that time but it has not improved. Patient states there is now blood in his stool that he notices when he has a bowel movement. He has a history of hemorrhoids but has never experienced blood in stool before. Patient last had a colonoscopy about 5 years ago without evidence for abnormal findings. Patient is concerned that it may be his gallbladder. Pain is not worse after eating. Pain is worse when he lies down. Patient denies any upper abdominal pain or pain in his chest. Patient has no other complaints at this time including shortness of breath, chest pain, headache, or visual changes. - Related Data Home Medications Medication Instructions Recorded Confirmed ALPRAZolam [Xanax] 1 mg PO TID 08/03/13 04/15/17 Esomeprazole Magnesium [NexIUM] 40 mg PO BID 08/03/13 04/15/17 Venlafaxine HCl [Effexor XR] 75 mg PO BID 08/03/13 04/15/17 Atorvastatin [Lipitor] 40 mg PO DAILY 03/08/16 04/15/17 Acetaminophen [Tylenol Extra 1,000 mg PO Q6H PRN 04/15/17 04/15/17 Strength] Allergies Allergy/AdvReac Type Severity Reaction Status Date / Time lorazepam [From Ativan] Allergy Unknown Verified 07/14/17 13:53 Penicillins Allergy Rash/Hives Verified 07/14/17 13:53 Review of Systems ROS Statement: Those systems with pertinent positive or pertinent negative responses have been documented in the HPI. ROS Other: All systems not noted in ROS Statement are negative. Past Medical History Past Medical History: Coronary Artery Disease (CAD), Cancer, Chest Pain / Angina , COPD, GERD/Reflux, Hearing Disorder / Deafness, Hyperlipidemia, Hypertension, Myocardial Infarction ([place]), Osteoarthritis (OA), Prostate Disorder Additional Past Medical History / Comment(s): barretts esophagus, hiatal hernia , melanoma removed from L shoulder, Herniated discs with back pain-(recent steroid injections), Torn retina right eye., Blood in stool Last Myocardial Infarction Date:: FEB 2014 History of Any Multi-Drug Resistant Organisms: None Reported Past Surgical History: Back Surgery, Heart Catheterization, Heart Catheterization With Stent, Hernia Repair, Orthopedic Surgery Additional Past Surgical History / Comment(s): hilario foot surgery achilles tendons , melanoma removed from left shoulder, a total of 5 bilateral inguinal hernia repairs, EGDs. Heart Cath with stents Feb 2014., FATTY TUMOR REMOVED RIGHT BREAST AND LEG., EGD (11/21/16) Past Anesthesia/Blood Transfusion Reactions: No Reported Reaction Additional Past Anesthesia/Blood Transfusion Reaction / Comment(s): . Date of Last Stent Placement:: FEB-2014 Past Psychological History: Anxiety, Depression Smoking Status: Former smoker Past Alcohol Use History: None Reported Past Drug Use History: None Reported - Past Family History Father Family Medical History: Myocardial Infarction ([place]) Additional Family Medical History / Comment(s): mi in his 40's Mother Family Medical History: Diabetes Mellitus, Hypertension Additional Family Medical History / Comment(s): Lupus General Exam Limitations: no limitations General appearance: alert, in no apparent distress Respiratory exam: Present: normal lung sounds bilaterally. Absent: respiratory distress, wheezes, rales, rhonchi, stridor Cardiovascular Exam: Present: regular rate, normal rhythm, normal heart sounds. Absent: systolic murmur, diastolic murmur, rubs, gallop, clicks GI/Abdominal exam: Present: soft, distended, tenderness (Tenderness in the periumbilical area), hyperactive bowel sounds. Absent: guarding, rebound, rigid Back exam: Present: normal inspection, full ROM. Absent: tenderness, CVA tenderness (R), CVA tenderness (L) Course Vital Signs 07/14/17 07/14/17 13:54 19:48 Temperature 97.3 F L 98.3 F Pulse Rate 64 66 Respiratory 18 18 Rate Blood Pressure 153/86 145/86 O2 Sat by Pulse 99 100 Oximetry Medical Decision Making - Medical Decision Making 57-year-old male sent to the emergency department for a chief complaint of abdominal pain 3 weeks. Patient has also had associated diarrhea as well as blood in the stool for the past few days. Patient denies any vomiting but states he has episodes of nausea. He is able to keep down liquids without difficulty. He has been drinking liquids. Patient denies any upper abdominal pain, chest pain, or shortness of breath. No nausea or pain in the emergency department. No diarrhea in the ED. patient has already finished two antibiotics a few days ago. On exam patient has mild mid abdominal tenderness. Labs and urinalysis are unremarkable. Occult stool is positive. Abdominal x-ray and abdominal CT showed no acute abnormalities. Patient will follow up with GI. He will return to the emergency department if symptoms worsen. - Lab Data Result diagrams: 07/14/17 14:30 07/14/17 14:30 Lab Results 07/14/17 07/14/17 07/14/17 Range/Units 14:30 14:30 14:30 WBC 8.5 (3.8-10.6) k/uL RBC 5.69 (4.30-5.90) m/uL Hgb 16.0 (13.0-17.5) gm/dL Hct 47.6 (39.0-53.0) % MCV 83.5 (80.0-100.0) fL MCH 28.1 (25.0-35.0) pg MCHC 33.7 (31.0-37.0) g/dL RDW 13.3 (11.5-15.5) % Plt Count 282 (150-450) k/uL Neutrophils % 71 % Lymphocytes % 21 % Monocytes % 5 % Eosinophils % 2 % Basophils % 0 % Neutrophils # 6.0 (1.3-7.7) k/uL Lymphocytes # 1.7 (1.0-4.8) k/uL Monocytes # 0.5 (0-1.0) k/uL Eosinophils # 0.1 (0-0.7) k/uL Basophils # 0.0 (0-0.2) k/uL Sodium 147 H (137-145) mmol/L Potassium 4.3 (3.5-5.1) mmol/L Chloride 106 (98-107) mmol/L Carbon Dioxide 26 (22-30) mmol/L Anion Gap 15 mmol/L BUN 8 L (9-20) mg/dL Creatinine 0.96 (0.66-1.25) mg/dL Est GFR (CKD-EPI)AfAm >90 (>60 ml/min/1.73 sqM) Est GFR (CKD-EPI)NonAf 87 (>60 ml/min/1.73 sqM) Glucose 91 (74-99) mg/dL Plasma Lactic Acid Jerome (0.7-2.0) mmol/L Calcium 10.2 (8.4-10.2) mg/dL Total Bilirubin 0.5 (0.2-1.3) mg/dL AST 23 (17-59) U/L ALT 40 (21-72) U/L Alkaline Phosphatase 74 (38-126) U/L Total Protein 7.0 (6.3-8.2) g/dL Albumin 4.5 (3.5-5.0) g/dL Amylase 38 (30-110) U/L Lipase 109 (23-300) U/L Urine Color Light Yellow Urine Appearance Clear (Clear) Urine pH 6.5 (5.0-8.0) Ur Specific [place] 1.003 (1.001-1.035) Urine Protein Negative (Negative) Urine Glucose (UA) Negative (Negative) Urine Ketones Negative (Negative) Urine Blood Negative (Negative) Urine Nitrite Negative (Negative) Urine Bilirubin Negative (Negative) Urine Urobilinogen <2.0 (<2.0) mg/dL Ur Leukocyte Esterase Negative (Negative) Stool Occult Blood (Negative) 07/14/17 07/14/17 Range/Units 17:27 18:45 WBC (3.8-10.6) k/uL RBC (4.30-5.90) m/uL Hgb (13.0-17.5) gm/dL Hct (39.0-53.0) % MCV (80.0-100.0) fL MCH (25.0-35.0) pg MCHC (31.0-37.0) g/dL RDW (11.5-15.5) % Plt Count (150-450) k/uL Neutrophils % % Lymphocytes % % Monocytes % % Eosinophils % % Basophils % % Neutrophils # (1.3-7.7) k/uL Lymphocytes # (1.0-4.8) k/uL Monocytes # (0-1.0) k/uL Eosinophils # (0-0.7) k/uL Basophils # (0-0.2) k/uL Sodium (137-145) mmol/L Potassium (3.5-5.1) mmol/L Chloride (98-107) mmol/L Carbon Dioxide (22-30) mmol/L Anion Gap mmol/L BUN (9-20) mg/dL Creatinine (0.66-1.25) mg/dL Est GFR (CKD-EPI)AfAm (>60 ml/min/1.73 sqM) Est GFR (CKD-EPI)NonAf (>60 ml/min/1.73 sqM) Glucose (74-99) mg/dL Plasma Lactic Acid Jerome 1.0 (0.7-2.0) mmol/L Calcium (8.4-10.2) mg/dL Total Bilirubin (0.2-1.3) mg/dL AST (17-59) U/L ALT (21-72) U/L Alkaline Phosphatase (38-126) U/L Total Protein (6.3-8.2) g/dL Albumin (3.5-5.0) g/dL Amylase (30-110) U/L Lipase (23-300) U/L Urine Color Urine Appearance (Clear) Urine pH (5.0-8.0) Ur Specific [place] (1.001-1.035) Urine Protein (Negative) Urine Glucose (UA) (Negative) Urine Ketones (Negative) Urine Blood (Negative) Urine Nitrite (Negative) Urine Bilirubin (Negative) Urine Urobilinogen (<2.0) mg/dL Ur Leukocyte Esterase (Negative) Stool Occult Blood Positive (Negative) Disposition Clinical Impression: Abdominal pain Disposition: HOME SELF-CARE Condition: Good Instructions: Abdominal Pain (ED) Additional Instructions: Please take Motrin or Tylenol for pain. Please return to the emergency department if you have worsening symptoms. Please follow-up with the gastrointestinal doctor in one to 2 days. Is patient prescribed a controlled substance at d/c from ED?: No Referrals: Emiliano Cheng MD [Primary Care Provider] - 1-2 days Maryana Velázquez MD [STAFF PHYSICIAN] - 1-2 days Time of Disposition: 19:35
--- NOTE | 2017-07-14 17:56 | XR ---
EXAMINATION TYPE: XR KUB DATE OF EXAM: 07/14/2017 COMPARISON: 10/10/2011 HISTORY: Abdominal pain TECHNIQUE: 2 views FINDINGS: There is no sign of intestinal obstruction or pneumoperitoneum. Fecal pattern is normal. Th ere is posterior fusion surgery at L5 L4 level. Lung bases are clear. There are no pathologic calcifi cations over the kidneys. IMPRESSION: Nonacute abdomen. No adverse change compared to old exam.
[2017-07-14] MEDS ORDERED: RX INFO: IV CONTRAST WAS GIVEN 1 EACH MISC MISCELLANE PRN (18:21)
--- NOTE | 2017-07-14 19:11 | CT ---
EXAMINATION TYPE: CT abdomen pelvis w con DATE OF EXAM: 07/14/2017 COMPARISON: June 25, 2017 HISTORY: Generalized abdominal pain, nausea and diarrhea x [address] DLP: 486.9 mGycm Automated exposure control for dose reduction was used. TECHNIQUE: Helical acquisition of images was performed from the lung bases through the pelvis. CONTRAST: Performed without Oral Contrast and with IV Contrast, patient injected with 100 mL of Isovue 300. FINDINGS: Lung bases are clear. There is no pleural effusion. Heart size is normal. Liver appears normal. Bile ducts are not dilated. Gallbladder appears normal. The spleen and pancreas appear normal. There is no adrenal mass. Kidneys show satisfactory contrast opacification. There is no hydronephrosi s. There is no retroperitoneal adenopathy. Bladder distends smoothly. There is no pelvic mass. There is no free fluid in the pelvis. Appendix appears normal. I see no intestinal wall thickening. There a re no dilated loops. There is no ascites. There is posterior fusion surgery at L4-5. I see no bony de structive process. IMPRESSION: NEGATIVE CT SCAN OF THE ABDOMEN AND PELVIS. NO ADVERSE CHANGE COMPARED TO OLD EXAM.
[2017-07-14 19:49] VITALS: BP 145/86; PULSE 66; TEMP 98.3
== END 2017-07-14 19:49 | disposition home or self-care (01) ==
LOC: EC 13:45
DX: R10.30 Lower abdominal pain, unspecified (principal); R14.0 Abdominal distension (gaseous); R19.12 Hyperactive bowel sounds; R19.7 Diarrhea, unspecified; K92.1 Melena; R11.0 Nausea; E78.5 Hyperlipidemia, unspecified; I10 Essential (primary) hypertension; I25.10 Atherosclerotic heart disease of native coronary artery without angina pectoris; K21.9 Gastro-esophageal reflux disease without esophagitis; F32.9 Major depressive disorder, single episode, unspecified; F41.9 Anxiety disorder, unspecified; Z87.891 Personal history of nicotine dependence; Z79.899 Other long term (current) drug therapy; Z88.0 Allergy status to penicillin; Z88.8 Allergy status to other drugs, medicaments and biological substances; Z85.820 Personal history of malignant melanoma of skin; Z98.890 Other specified postprocedural states
CPT/HCPCS: 36415; 80053; 82150; 83605; 83690; 85025; 82272; 81003; 74018; 74177; 99284; 96360; 96361; Q9967

== ENCOUNTER 2017-10-23 13:42 | Emergency (ER) | payer BC ==
[2017-10-23 14:05] VITALS: RESP 18; TEMP 97.7
[2017-10-23 14:28] LABS: Basophils # (A) 0.1 k/uL (0-0.2); Basophils % (A) 1 %; Eosinophils # (A) 0.2 k/uL (0-0.7); Eosinophils % (A) 2 %; HCT 49.1 % (39.0-53.0); HGB 16.5 gm/dL (13.0-17.5); Lymphocytes # (A) 2.2 k/uL (1.0-4.8); Lymphocytes % (A) 22 %; MCH 29.4 pg (25.0-35.0); MCHC 33.7 g/dL (31.0-37.0); MCV 87.4 fL (80.0-100.0); Mean Platelet Volume 6.8; Monocytes # (A) 0.5 k/uL (0-1.0); Monocytes % (A) 5 %; Neutrophils # (A) 6.8 k/uL (1.3-7.7); Neutrophils % (A) 69 %; Platelet Count 330 k/uL (150-450); RBC 5.61 m/uL (4.30-5.90); WBC 9.9 k/uL (3.8-10.6)
[2017-10-23 14:39] LABS: Albumin 4.8 g/dL (3.5-5.0); Calcium 10.4 mg/dL (8.4-10.2); Total Protein 7.4 g/dL (6.3-8.2)
[2017-10-23] MEDS ORDERED: ONDANSETRON 4 MG/2 ML VIAL IVP STA (15:00)
[2017-10-23] MEDS ORDERED: KETOROLAC 30 MG/ML 1 ML VIAL IVP STA (15:00)
[2017-10-23] MEDS ORDERED: SODIUM CHLORIDE 0.9% 1,000 ML IV STA ×2 (15:00→16:40)
--- NOTE | 2017-10-23 15:24 | ED ---
General Adult HPI - General Chief complaint: Abdominal Pain Stated complaint: abdominal pain/no bowel movement Time Seen by Provider: 10/23/17 14:59 Source: patient, RN notes reviewed Mode of arrival: ambulatory Limitations: no limitations - History of Present Illness Initial comments: 57-year-old male presents to the emergency department for a chief complaint of abdominal pain 2 weeks. Patient describes the pain as a lower midline abdominal pain. He describes the pain as a sharp pain and rates the pain at an 8 out of 10 in the emergency department. Patient has a history of IBS and has had similar symptoms before. Patient recently had a colonoscopy last month and is not aware of any abnormalities found. Patient has not yet seen primary care provider for the pain in the past 2 weeks. Patient also states he has been nauseous and has had a decreased appetite because of the nausea. Patient states he has not had a bowel movement in 3 days, possibly because he is eating less. Patient also complains of low back pain. Patient had L4/5 surgery about 6 months ago. He states that he went swimming about 2 weeks ago and noticed increased pain in his low back at that time. Patient denies any shooting pain down the legs. Patient denies any numbness, tingling, or weakness. Patient denies any bladder or bowel changes besides for constipation. Patient has no other complaints at this time including shortness of breath, chest pain, headache, or visual changes. - Related Data Home Medications Medication Instructions Recorded Confirmed ALPRAZolam [Xanax] 1 mg PO TID 08/03/13 10/23/17 Esomeprazole Magnesium [NexIUM] 40 mg PO BID 08/03/13 10/23/17 Venlafaxine HCl [Effexor XR] 75 mg PO BID 08/03/13 10/23/17 Atorvastatin [Lipitor] 40 mg PO DAILY 03/08/16 10/23/17 Acetaminophen [Tylenol Extra 1,000 mg PO Q6H PRN 04/15/17 10/23/17 Strength] Previous Rx's Medication Instructions Recorded Docusate Sodium [Dok] 100 mg PO DAILY #20 capsule 10/23/17 Ondansetron [Zofran ODT] 4 mg PO Q8HR PRN #15 tab 10/23/17 Allergies Allergy/AdvReac Type Severity Reaction Status Date / Time lorazepam [From Ativan] Allergy Unknown Verified 10/23/17 14:05 Penicillins Allergy Rash/Hives Verified 10/23/17 14:05 Review of Systems ROS Statement: Those systems with pertinent positive or pertinent negative responses have been documented in the HPI. ROS Other: All systems not noted in ROS Statement are negative. Past Medical History Past Medical History: Coronary Artery Disease (CAD), Cancer, Chest Pain / Angina , COPD, GERD/Reflux, Hearing Disorder / Deafness, Hyperlipidemia, Hypertension, Myocardial Infarction (RI), Osteoarthritis (OA), Prostate Disorder Additional Past Medical History / Comment(s): barretts esophagus, hiatal hernia , melanoma removed from L shoulder, Herniated discs with back pain-(recent steroid injections), Torn retina right eye., Blood in stool Last Myocardial Infarction Date:: FEB 2014 History of Any Multi-Drug Resistant Organisms: None Reported Past Surgical History: Back Surgery, Heart Catheterization, Heart Catheterization With Stent, Hernia Repair, Orthopedic Surgery Additional Past Surgical History / Comment(s): hilario foot surgery achilles tendons , melanoma removed from left shoulder, a total of 5 bilateral inguinal hernia repairs, EGDs. Heart Cath with stents Feb 2014., FATTY TUMOR REMOVED RIGHT BREAST AND LEG., EGD (11/21/16) Past Anesthesia/Blood Transfusion Reactions: No Reported Reaction Additional Past Anesthesia/Blood Transfusion Reaction / Comment(s): . Date of Last Stent Placement:: FEB-2014 Past Psychological History: Anxiety, Depression Smoking Status: Former smoker Past Alcohol Use History: None Reported Past Drug Use History: None Reported - Past Family History Father Family Medical History: Myocardial Infarction (RI) Additional Family Medical History / Comment(s): mi in his 40's Mother Family Medical History: Diabetes Mellitus, Hypertension Additional Family Medical History / Comment(s): Lupus General Exam Limitations: no limitations General appearance: alert, in no apparent distress Head exam: Present: atraumatic, normocephalic, normal inspection Eye exam: Present: normal appearance, PERRL, EOMI. Absent: scleral icterus, conjunctival injection, periorbital swelling ENT exam: Present: normal exam, mucous membranes moist Neck exam: Present: normal inspection, full ROM. Absent: tenderness, meningismus, lymphadenopathy Respiratory exam: Present: normal lung sounds bilaterally. Absent: respiratory distress, wheezes, rales, rhonchi, stridor Cardiovascular Exam: Present: regular rate, normal rhythm, normal heart sounds. Absent: systolic murmur, diastolic murmur, rubs, gallop, clicks GI/Abdominal exam: Present: soft, tenderness (midline lower abdominal tenderness just inferior to umbilicus, no other abdominal tenderness), normal bowel sounds, other (negative obturator, iliopsoas signs, negative wolfe sign.) . Absent: distended, guarding, rebound, rigid Extremities exam: Present: full ROM (of BLE), normal capillary refill (in BLE), other (sensation intact in BLE) Back exam: Absent: full ROM (45 degrees flexion) Neurological exam: Present: normal gait Psychiatric exam: Present: normal affect, normal mood Course Vital Signs 10/23/17 10/23/17 14:03 19:15 Temperature 97.7 F Pulse Rate 93 80 Respiratory 18 18 Rate Blood Pressure 110/77 110/59 O2 Sat by Pulse 100 99 Oximetry Medical Decision Making - Medical Decision Making 57-year-old male with history of IBS presents to the emergency department for a chief complaint of lower abdominal pain 2 weeks. Patient states he has not had a bowel movement in 3 days. He also states he has been nauseous and has had a decreased appetite due to the nausea. Patient denies fevers or chills at home. On exam patient is midline lower abdominal tenderness. CBC is unremarkable with a white count of 9.9. CMP unremarkable. CT abdomen and pelvis shows that there is thickening of the gastric wall that appears slightly more than last computed tomography scan 3 months ago. Patient does have a history of GERD and Tran's esophagus. Patient has a normal appendix. Lumbar spine posterior fusion surgery and laminectomy shown without acute abnormality and appears stable compared to old exam. No evidence for constipation. Patient likely experiencing symptoms of IBS at this point. He will be given docusate sodium as he feels he may be constipated regardless of computed tomography scan. Patient will continue Nexium for gastritis and follow -up with GI for endoscope. He will also be given Zofran which helped him to feel exceptionally better in the emergency department. At time of discharge he is feeling much better. - Lab Data Result diagrams: 10/23/17 14:17 10/23/17 14:17 Lab Results 10/23/17 10/23/17 10/23/17 Range/Units 14:17 14:17 17:04 WBC 9.9 (3.8-10.6) k/uL RBC 5.61 (4.30-5.90) m/uL Hgb 16.5 (13.0-17.5) gm/dL Hct 49.1 (39.0-53.0) % MCV 87.4 (80.0-100.0) fL MCH 29.4 (25.0-35.0) pg MCHC 33.7 (31.0-37.0) g/dL RDW 14.0 (11.5-15.5) % Plt Count 330 (150-450) k/uL Neutrophils % 69 % Lymphocytes % 22 % Monocytes % 5 % Eosinophils % 2 % Basophils % 1 % Neutrophils # 6.8 (1.3-7.7) k/uL Lymphocytes # 2.2 (1.0-4.8) k/uL Monocytes # 0.5 (0-1.0) k/uL Eosinophils # 0.2 (0-0.7) k/uL Basophils # 0.1 (0-0.2) k/uL Sodium 136 L (137-145) mmol/L Potassium 4.0 (3.5-5.1) mmol/L Chloride 97 L (98-107) mmol/L Carbon Dioxide 28 (22-30) mmol/L Anion Gap 11 mmol/L BUN 14 (9-20) mg/dL Creatinine 1.19 (0.66-1.25) mg/dL Est GFR (CKD-EPI)AfAm 78 (>60 ml/min/1.73 sqM) Est GFR (CKD-EPI)NonAf 67 (>60 ml/min/1.73 sqM) Glucose 98 (74-99) mg/dL Calcium 10.4 H (8.4-10.2) mg/dL Total Bilirubin 1.0 (0.2-1.3) mg/dL AST 26 (17-59) U/L ALT 37 (21-72) U/L Alkaline Phosphatase 68 (38-126) U/L Total Protein 7.4 (6.3-8.2) g/dL Albumin 4.8 (3.5-5.0) g/dL Amylase 52 (30-110) U/L Lipase 117 (23-300) U/L Urine Color Light Yellow Urine Appearance Clear (Clear) Urine pH 6.0 (5.0-8.0) Ur Specific [place] 1.040 H (1.001-1.035) Urine Protein Negative (Negative) Urine Glucose (UA) Negative (Negative) Urine Ketones Negative (Negative) Urine Blood Negative (Negative) Urine Nitrite Negative (Negative) Urine Bilirubin Negative (Negative) Urine Urobilinogen <2.0 (<2.0) mg/dL Ur Leukocyte Esterase Negative (Negative) Disposition Clinical Impression: Abdominal pain, Gastritis Disposition: HOME SELF-CARE Condition: Good Instructions: Gastritis (ED), Acute Nausea and Vomiting (ED) Additional Instructions: Please continue to take Nexium as directed. Take Zofran for nausea. Take stool softener as needed. Follow-up with GI in 1-2 days. Return to the emergency department if you have any worsening symptoms. Prescriptions: Docusate Sodium [Dok] 100 mg PO DAILY #20 capsule Ondansetron [Zofran ODT] 4 mg PO Q8HR PRN #15 tab PRN Reason: Nausea Is patient prescribed a controlled substance at d/c from ED?: No Referrals: Emiliano Cheng MD [Primary Care Provider] - 1-2 days Time of Disposition: 18:59
--- NOTE | 2017-10-23 16:39 | CT ---
EXAMINATION TYPE: CT abdomen pelvis w con DATE OF EXAM: 10/23/2017 COMPARISON: 07/14/2017 HISTORY: Low back pain, abdominal pain, no bowel movements CT DLP: 398.2 mGycm Automated exposure control for dose reduction was used. TECHNIQUE: Helical acquisition of images was performed from the lung bases through the pelvis. CONTRAST: Performed without Oral Contrast and with IV Contrast, patient injected with 100 mL of Isovue 300. FINDINGS: Lung bases are clear. There is no pleural effusion. Heart size is normal. Liver appears normal. Gallbladder is large and measures 4.5 cm. Bile ducts are not dilated. Spleen ap pears normal. There is no pancreatic mass. Stomach wall appears uniformly thickened. There is no adrenal mass. Kidneys show satisfactory contrast opacification. There is no hydronephrosi s. There is no retroperitoneal adenopathy. There is no ascites. Bladder distends smoothly. There is n o free fluid in the pelvis. I see no intestinal wall thickening. There are no dilated loops. Appendix appears normal. There is no evidence of a pelvic mass. There is posterior fusion surgery at L4-5 with rods and screws. There is narrowing of L4-5 disc space . There is no compression fracture. I see no bony destructive process. There is left-sided laminectom y of L4. IMPRESSION: THERE IS THICKENING OF THE GASTRIC WALL THAT APPEARS SLIGHTLY MORE THAN LAST CT SCAN OF 07/14/2017 AND COULD RELATE TO HYPERTROPHIC GASTRITIS. NORMAL APPENDIX. LUMBAR SPINE POSTERIOR FUSION SURGERY AND LAMINECTOMY. NO ACUTE BONY ABNORMALITY. THIS APPEARS STABLE COMPARED TO OLD EXAM. NO EVIDENCE OF CONSTIPATION. BORDERLINE DILATED GALLBLADDER. GALLBLADDER IS LA RGER THAN OLD CT SCAN AND THIS COULD RELATE TO GALLBLADDER DYSFUNCTION.
[2017-10-23 17:12] LABS: Appearance,Urine Clear (Clear); Bilirubin,Urine Negative (Negative); Blood,Urine Negative (Negative); Color,Urine Light Yellow; Glucose,Urine (UA) Negative (Negative); Ketones,Urine Negative (Negative); Leukocyte Esterase,Urine Negative (Negative); Nitrite,Urine Negative (Negative); Protein,Urine Negative (Negative); Urobilinogen,Urine <2.0 mg/dL (<2.0)
--- NOTE | 2017-10-23 18:04 | US ---
EXAMINATION TYPE: US gallbladder DATE OF EXAM: 10/23/2017 COMPARISON: CT 2017, US 2009 CLINICAL HISTORY: Pain. Intermittent abdomen pain and N/V x 2 weeks EXAM MEASUREMENTS: Liver Length: 16.1 cm Gallbladder Wall: 0.2 cm CBD: 0.4 cm Right Kidney: 8.8 x 4.2 x 4.4 cm Pancreas: visualized portions wnl, limited by overlying midline bowel gas Liver: wnl Gallbladder: appears hydropic measuring 4.5cm in width Evidence for sonographic Fletcher's sign: yes CBD: visualized portions wnl, limited by overlying bowel gas Right Kidney: wnl IMPRESSION: There is borderline dilated gallbladder. No dilated ducts. This could relate to gallbladd er dysfunction. No gallstones seen.
[2017-10-23 19:16] VITALS: BP 110/59; PULSE 80
== END 2017-10-23 19:16 | disposition home or self-care (01) ==
LOC: EC 13:42
DX: K29.70 Gastritis, unspecified, without bleeding (principal); I25.10 Atherosclerotic heart disease of native coronary artery without angina pectoris; K21.9 Gastro-esophageal reflux disease without esophagitis; H91.90 Unspecified hearing loss, unspecified ear; E78.5 Hyperlipidemia, unspecified; I25.2 Old myocardial infarction; F41.9 Anxiety disorder, unspecified; F32.9 Major depressive disorder, single episode, unspecified; Z87.891 Personal history of nicotine dependence; Z87.19 Personal history of other diseases of the digestive system; Z95.5 Presence of coronary angioplasty implant and graft; Z98.890 Other specified postprocedural states
CPT/HCPCS: 36415; 80053; 82150; 83690; 85025; 81003; 76705; 74177; 99284; 96374; 96375; 96361 ×2; J2405; J1885; Q9967

== ENCOUNTER 2019-04-02 11:18 | Day surgery (SDC) | payer BC, MEDICARE ==
[2019-03-31 11:48] VITALS: BMI 25.5
[~2019-04-02 11:18] MED LIST: DEXAMETHASONE SOD PHOSPHATE 10 MG/ML 1 ML VIAL IV ONE; LACTATED RINGERS 1,000 ML IV SCH; LIDOCAINE 1% 20 ML VIAL (10MG/ML) FOR IV START INTRADERMA PRN; ONDANSETRON 4 MG/2 ML VIAL IVP ONE; SCOPOLAMINE 1.5MG/72HR PATCH TRANSDERM ONE
[2019-04-02 12:40] VITALS: TEMP 98
[2019-04-02] MEDS ORDERED: PROPOFOL 10 MG/ML 20 ML VIAL IV ONE (13:10)
[2019-04-02] MEDS ORDERED: LIDOCAINE 1% INJ 10MG/ML (20 ML MDV) ONE (13:10)
--- NOTE | 2019-04-02 13:23 | P.PCN ---
Date of Procedure: 04/02/19 Procedure(s) Performed: BRIEF HISTORY: Patient is a 59-year-old, pleasant, white male scheduled for an upper endoscopy as a part of evaluation of long-standing history of GERD with worsening symptoms. He is on omeprazole 20 mg twice daily despite which remains symptomatic.. PROCEDURE PERFORMED: Esophagogastroduodenoscopy with biopsy PREOPERATIVE DIAGNOSIS: Long-standing history of GERD. IV sedation per anesthesia. PROCEDURE: After informed consent was obtained, the patient was brought into the endoscopy unit. IV sedation was administered by Anesthesia under continuous monitoring. Initially the Olympus GIF-140 video endoscope was inserted into the mouth. Esophagus intubated without any difficulty. It was gradually advanced into the stomach and duodenum and carefully examined. The bulb and the second part of the duodenum appeared normal. The scope at this time was withdrawn to the stomach, adequately insufflated with air, and upon careful examination, mucosa of the antrum had mild gastritis and biopsies were done from this area. The body, cardia and the fundus appeared normal. The scope was then withdrawn into the esophagus. The GE junction was located at 39 cm from the incisors. There was a short segment of Tran's esophagus extending 3 mm proximal to the GE junction which was biopsied. The rest of the esophagus appeared normal. There were no erosions or ulcerations seen and the patient tolerated the procedure well. IMPRESSION: 1. Small hiatal hernia. 2. Irregular GE junction with a 3 mm Tran's appearing mucosa just proximal to the GE junction status was biopsy 3. Mild antral gastritis. RECOMMENDATIONS: The findings of this examination were discussed with the patient as well as a family. He was advised to follow with the biopsy results. He will continue with omeprazole 20 mg twice daily and will start him on Carafate 1 g 4 times daily for worsening reflux symptoms.
[2019-04-02] MEDS ORDERED: IV FLUID CONTINUATION 1,000 ML IV ONE (13:24)
[2019-04-02 13:46] VITALS: BP 142/94; PULSE 73; RESP 18
== END 2019-04-02 14:01 | disposition home or self-care (01) ==
LOC: ORWHC2ENDO 11:18
PROVIDERS: ATTEND Internal Medicine Gastroenterology
DX: K29.50 Unspecified chronic gastritis without bleeding (principal); K21.0 Gastro-esophageal reflux disease with esophagitis; Z79.02 Long term (current) use of antithrombotics/antiplatelets; Z79.82 Long term (current) use of aspirin; Z79.891 Long term (current) use of opiate analgesic; Z79.899 Other long term (current) drug therapy; Z88.8 Allergy status to other drugs, medicaments and biological substances; I25.10 Atherosclerotic heart disease of native coronary artery without angina pectoris; I10 Essential (primary) hypertension; E78.5 Hyperlipidemia, unspecified; I25.2 Old myocardial infarction; Z95.5 Presence of coronary angioplasty implant and graft; K22.70 Barrett's esophagus without dysplasia; K44.9 Diaphragmatic hernia without obstruction or gangrene
CPT/HCPCS: 88305; 43239; J2001; J2704

== ENCOUNTER → 2019-07-07 | Outpatient (CLI) | payer BC, MEDICARE ==
[2019-07-07 16:21] LABS: African American GFR (CKD) 84.1 (60.0-200.0); Anion Gap 7.6 mmol/L (4.00-12.00); BUN/Creat Ratio 12.73 Ratio (12.00-20.00); Calcium 9.4 mg/dL (8.7-10.3); Carbon Dioxide 26.4 mmol/L (21.6-31.8); Non-African American GFR(CKD) 72.6 (60.0-200.0); Potassium 3.5 mmol/L (3.5-5.5)
== END | disposition home or self-care (01) ==
LOC: LABWHC1 11:21
PROVIDERS: ATTEND Nurse Practitioner Adult Health
DX: I10 Essential (primary) hypertension (principal)
CPT/HCPCS: 36415; 80048

== ENCOUNTER → 2019-11-12 | Outpatient (CLI) | payer BC, MEDICARE | END | disposition home or self-care (01) | LOC: LABWHC1 14:31 | PROVIDERS: ATTEND Internal Medicine | DX: R50.9 Fever, unspecified (principal); R05 Cough | CPT/HCPCS: U0003; C9803 ==

== ENCOUNTER → 2020-04-05 | Outpatient (CLI) | payer BC, MEDICARE ==
[~2020-04-05] MED LIST changes: -DEXAMETHASONE SOD PHOSPHATE 10 MG/ML 1 ML VIAL IV ONE; -LACTATED RINGERS 1,000 ML IV SCH; -LIDOCAINE 1% 20 ML VIAL (10MG/ML) FOR IV START INTRADERMA PRN; -ONDANSETRON 4 MG/2 ML VIAL IVP ONE; +REGADENOSON 0.4 MG/5 ML SYRINGE IV PRN; -SCOPOLAMINE 1.5MG/72HR PATCH TRANSDERM ONE
--- NOTE | 2020-04-05 14:18 | EST ---
EXERCISE STRESS AGE: 60 SEX: Male HT: 5'11" WT: 180 lbs. PROTOCOL: Lexiscan STAGE: N/A DURATION OF EXERCISE: 5 min. HEART RATE REST: 58 BLOOD PRESSURE REST: 105/71 MAXIMUM HEART RATE ACHIEVED: 88 MAXIMUM BLOOD PRESSURE: 112/71 85% MPHR: 135 100% MPHR: 159 METS: N/A INDICATIONS: chest pain CLINICAL INFORMATION: Baseline rhythm is sinus mechanism, rate 58, normal axis and intervals, nonspecific ST- T wave changes. Baseline blood pressure 105/71 mmHg. Patient received injection of Lexiscan. Electrocardiograph monitoring revealed no evidence of diagnostic ischemic ST deviation. Cardiolite was injected per protocol. CONCLUSION: 1. Nondiagnostic electrocardiograph stress testing. 2. Nuclear images will be reported separately. MMODL / IJN: [id number] /
--- NOTE | 2020-04-05 15:25 | NM ---
EXAMINATION TYPE: NM stress lexiscan cardiolite DATE OF EXAM: 04/05/2020 COMPARISON: NONE HISTORY: Chest pain TECHNIQUE: After the intravenous administration of 10.0 mCi Tc 99m Sestamibi - Cardiolite resting SP ECT images acquired 45 minutes post injection. The patient received 0.4mg Lexiscan, 25.0 mCi Tc 99m Sestamibi - Stress images obtained [address] injection FINDINGS: Review of stress and rest SPECT images demonstrates no distinct perfusion abnormality. Gated analysi s shows normal wall motion with an estimated left ventricular ejection fraction of 71 %. IMPRESSION: No scintigraphic evidence for reversible ischemia.
== END | disposition home or self-care (01) ==
LOC: RADNMMAIN 08:00
PROVIDERS: ATTEND Internal Medicine
DX: I25.119 Atherosclerotic heart disease of native coronary artery with unspecified angina pectoris (principal)
CPT/HCPCS: 93017; 78452; A9500; J2785

== ENCOUNTER → 2020-04-13 | Outpatient (CLI) | payer BC ==
--- NOTE | 2020-04-13 13:30 | US ---
EXAMINATION TYPE: US gallbladder DATE OF EXAM: 04/13/2020 COMPARISON: 10/23/17 CLINICAL HISTORY: 60-year-old male R10.13 Dyspepsia. Chest pain x 2 months TECHNIQUE: Multiple sonographic images of the right upper quadrant are obtained. FINDINGS: EXAM MEASUREMENTS: Liver Length: 16.0 cm Gallbladder Wall: 0.2 cm CBD: 0.3 cm Right Kidney: 10.4 x 5.0 x 4.1 cm Pancreas: Portions of the pancreatic head and body are visualized and show no gross abnormal body. T he tail is obscured by bowel gas. Liver: wnl Gallbladder: Borderline to mildly hydropic measuring up to 4.3 cm wide. No wall thickening, surroundi ng fluid, or shadowing calculi. Evidence for sonographic Fletcher's sign: No CBD: wnl Right Kidney: No hydronephrosis. IMPRESSION: 1. Borderline to mildly hydropic gallbladder likely due to fasting state. No gallstones or findings o f acute cholecystitis. 2. No biliary ductal dilatation.
== END | disposition home or self-care (01) ==
LOC: RADUSWWP 08:39
PROVIDERS: ATTEND Internal Medicine
DX: K82.1 Hydrops of gallbladder (principal)
CPT/HCPCS: 76705

== ENCOUNTER → 2020-05-01 | Outpatient (CLI) | payer BC, MEDICARE ==
--- NOTE | 2020-05-01 16:36 | NM ---
EXAMINATION TYPE: NM hepatobiliary w EF DATE OF EXAM: 05/01/2020 COMPARISON: HIDA scan 2010. Gallbladder ultrasound April 13, 2010. HISTORY: Other specified disease of gallbladder per order. Right upper quadrant pain for 4 months wit h heartburn and reflux-like symptoms TECHNIQUE: After the intravenous administration of 4.8 mCi Tc 99m Mebrofenin hepatobiliary scintigrap hy is performed. Immediate images post injection. FINDINGS: There is satisfactory initial accumulation of tracer by the liver. The gallbladder is visualized wit hin 15 minutes. The small bowel activity is noted within 40 minutes. At one hour 8 ounces of oral e nsure plus is given to mimic CCK and gallbladder ejection fraction is calculated at 78 %, in the norm al range. Therefore there is no scintigraphic evidence of cystic or common bile duct obstruction to suggest acute cholecystitis or gallbladder dyskinesia. IMPRESSION: Exam is within normal limits.
== END | disposition home or self-care (01) ==
LOC: RADNMMAIN 12:48
PROVIDERS: ATTEND Internal Medicine
DX: R10.11 Right upper quadrant pain (principal)
CPT/HCPCS: 78226; A9537

== ENCOUNTER 2020-06-11 14:18 | Emergency (ER) | payer BC, MEDICARE ==
--- NOTE | 2020-06-11 15:08 | XR ---
EXAMINATION TYPE: XR chest 2V DATE OF EXAM: 06/11/2020 COMPARISON: 04/15/2017 HISTORY: Cough TECHNIQUE: FINDINGS: Heart and mediastinum are normal. Lungs are clear. Costophrenic angles are clear. There are no hilar masses. Bony thorax is intact. IMPRESSION: No active cardiopulmonary disease. Normal heart. No change.
[2020-06-11 15:51] LABS: Potassium 4.1 mmol/L (3.5-5.1)
[2020-06-11 15:52] LABS: Albumin 4.3 g/dL (3.5-5.0); Calcium 9.9 mg/dL (8.4-10.2); Total Bilirubin 0.8 mg/dL (0.2-1.3); Total Protein 6.8 g/dL (6.3-8.2)
[2020-06-11 16:06] VITALS: RESP 18; TEMP 97.8
[2020-06-11 16:17] LABS: Basophils # (A) 0.1 k/uL (0-0.2); Basophils % (A) 0 %; Eosinophils # (A) 0.3 k/uL (0-0.7); Eosinophils % (A) 3 %; HCT 42.7 % (39.0-53.0); HGB 15.2 gm/dL (13.0-17.5); Lymphocytes # (A) 2.3 k/uL (1.0-4.8); Lymphocytes % (A) 20 %; MCH 30.7 pg (25.0-35.0); MCHC 35.7 g/dL (31.0-37.0); Mean Platelet Volume 7.3; Monocytes # (A) 0.5 k/uL (0-1.0); Monocytes % (A) 4 %; Neutrophils # (A) 8.2 k/uL (1.3-7.7); Neutrophils % (A) 71 %; Platelet Count 311 k/uL (150-450); RBC 4.96 m/uL (4.30-5.90); RDW 12.2 % (11.5-15.5); WBC 11.5 k/uL (3.8-10.6)
--- NOTE | 2020-06-11 16:33 | ED ---
URI HPI - General Source: family Mode of arrival: ambulatory Limitations: no limitations <Arminda Francis - Last Filed: 06/11/20 16:38> <Aicha Ortiz - Last Filed: 06/13/20 02:04> - General Chief Complaint: Upper Respiratory Infection Stated Complaint: No Taste/Smell, Not feeling Well Time Seen by Provider: 06/11/20 14:45 - History of Present Illness Initial Comments: Very well-appearing 60-year-old male extensive past medical history presenting to the ER today for chief complaint of loss of taste and smell times one day as well as some mild shortness of breath malaise and fatigue. Patient states he is fully vaccinated with midsternal vaccine. He states that he has over 3 weeks out from his last dose. Patient states that he has had loss and taste of smell for the past day which is concerning for him for coronary. He has had occasional cough with some mild shortness of breath he denies any chest pain, pain with deep inspiration like swelling hemoptysis recent surgeries or immobilization. He denies any leg swelling calf pain. Patient denies any diarrhea vomiting nausea jaw pain or arm pain. Patient denies diaphoresis or fevers upon arrival patient appears well and nontoxic in no acute distress (Arminda Francis) - Related Data Home Medications Medication Instructions Recorded Confirmed ALPRAZolam [Xanax] 0.5 mg PO BID 08/03/13 03/31/19 Venlafaxine HCl [Effexor XR] 75 mg PO DAILY@1500 08/03/13 03/31/19 Atorvastatin [Lipitor] 40 mg PO DAILY 03/08/16 03/31/19 Acetaminophen [Tylenol Extra 1,000 mg PO Q6H PRN 04/15/17 03/31/19 Strength] Ascorbic Acid [Vitamin C] 1,000 mg PO DAILY 03/31/19 03/31/19 Aspirin [Adult Low Dose Aspirin EC] 81 mg PO DAILY 03/31/19 03/31/19 Cholecalciferol [Vitamin D3 (25 1,000 unit PO DAILY 03/31/19 03/31/19 Mcg = 1000 Iu)] HYDROcodone/APAP 7.5-325MG [[place] 1 tab PO Q12HR PRN 03/31/19 04/02/19 7.5-325] Losartan Potassium [Cozaar] 100 mg PO DAILY 03/31/19 03/31/19 Melatonin 3 mg PO HS 03/31/19 03/31/19 Omeprazole 40 mg PO BID 03/31/19 03/31/19 Previous Rx's Medication Instructions Recorded Docusate Sodium [Dok] 100 mg PO DAILY #20 capsule 10/23/17 Allergies Allergy/AdvReac Type Severity Reaction Status Date / Time lorazepam [From Ativan] Allergy Unknown Verified 06/11/20 14:33 Penicillins Allergy Rash/Hives Verified 06/11/20 14:33 Review of Systems ROS Other: All systems not noted in ROS Statement are negative. <Arminda Francis - Last Filed: 06/11/20 16:38> ROS Other: All systems not noted in ROS Statement are negative. <Aicha Ortiz - Last Filed: 06/13/20 02:04> ROS Statement: Those systems with pertinent positive or pertinent negative responses have been documented in the HPI. Past Medical History Past Medical History: Coronary Artery Disease (CAD), Cancer, Chest Pain / Angina, COPD, GERD/Reflux, Hearing Disorder / Deafness, Hyperlipidemia, Hypertension, Myocardial Infarction ([place]), Musculoskeletal Disorder, Osteoarthritis (OA) Additional Past Medical History / Comment(s): Barretts esophagus, hiatal hernia, Melanoma CA removed from L shoulder, Herniated discs w/ back pain, hx Torn retina right eye. Last Myocardial Infarction Date:: FEB 2014 History of Any Multi-Drug Resistant Organisms: None Reported Past Surgical History: Back Surgery, Heart Catheterization, Heart Catheterization With Stent, Hernia Repair, Orthopedic Surgery Additional Past Surgical History / Comment(s): hilario foot surgery/achilles tendons, melanoma removed from left shoulder, a total of 5 bilateral inguinal hernia repairs. Heart Cath w/ 2 stents Feb 2014., FATTY TUMOR REMOVED RIGHT BREAST AND LEG. EGD's. Colonoscopy. Past Anesthesia/Blood Transfusion Reactions: No Reported Reaction Additional Past Anesthesia/Blood Transfusion Reaction / Comment(s): . Date of Last Stent Placement:: FEB-2014 Past Psychological History: Anxiety, Depression Past Alcohol Use History: None Reported Past Drug Use History: None Reported - Past Family History Father Family Medical History: Myocardial Infarction ([place]) Additional Family Medical History / Comment(s): mi in his 40's Mother Family Medical History: Cancer, Diabetes Mellitus, Hypertension Additional Family Medical History / Comment(s): Lupus <Arminda Francis - Last Filed: 06/11/20 16:38> General Exam Limitations: no limitations <TitoArminda Gutierrez - Last Filed: 06/11/20 16:38> - General Exam Comments Initial Comments: General: The patient is awake and alert, in no distress, and does not appear acutely ill. Eye: Pupils are equal, round and reactive to light, extra-ocular movements are intact. No nystagmus. There is normal conjunctiva bilaterally. No signs of icterus. Cardiovascular: There is a regular rate and rhythm. No murmur, rub or gallop is appreciated. Respiratory: Lungs are clear to auscultation, respirations are non-labored, breath sounds are equal. No wheezes, stridor, rales, or rhonchi. Gastrointestinal: Soft, non-distended, non-tender abdomen without masses or organomegaly noted. There is no rebound or guarding present. Musculoskeletal: Normal ROM, no tenderness. Strength 5/5. Sensation intact. Radial and DP pulses equal bilaterally 2+. Neurological: A&O x 3. CN II-XII intact grossly, There are no obvious motor or sensory deficits. Coordination appears grossly intact. Speech is normal. Skin: Skin is warm and dry and no rashes or lesions are noted. Psychiatric: Cooperative, appropriate mood & affect, normal judgment. (Arminda Francis) Course Vital Signs 06/11/20 06/11/20 06/11/20 14:30 14:53 16:05 Temperature 98.0 F 97.8 F Pulse Rate 65 57 L Respiratory 18 20 18 Rate Blood Pressure 124/78 104/69 O2 Sat by Pulse 100 99 Oximetry 06/11/20 16:35 Temperature Pulse Rate 64 Respiratory 18 Rate Blood Pressure 104/74 O2 Sat by Pulse 99 Oximetry Medical Decision Making - Lab Data Result diagrams: 06/11/20 16:14 06/11/20 15:34 <Arminda Francis - Last Filed: 06/11/20 16:38> - Lab Data Result diagrams: 06/11/20 16:14 06/11/20 15:34 <Aicha Ortiz - Last Filed: 06/13/20 02:04> - Medical Decision Making Patient is mild leukocytosis otherwise laboratory studies are within acceptable limits. Patient has no complaints of chest pain he is very mild soreness of olga ath d-dimer negative. Patient chest x-ray clear no acute findings. Initial rapid, but was negative patient's PCR is pending. EKG no specific findings. At this time we do suspect given the loss of taste and smell the patient most likely has a COVID-19 infection with a false negative however we are pending confirmatory studies. I discussed the case with attending provider Dr. Oakley who is agreeable to this disposition, as well as care plan .pt was dischareged appearing well. Ventricular rate 62 bpm, WI interval 162 ms, QRS gnosticism 96 most seconds, QT/QTC 42/48 ms. This is normal sinus there is nonspecific T-wave changes with no ST elevation or depression. (Arminda Francis) I was available for consultation in the emergency department. The history and physical exam were done by the midlevel provider. I was consulted for this patients care. I reviewed the case with the midlevel provider and based on their presentation of the patient, I agree with the assessment, medical decision making and plan of care as documented. Chart was dictated using [employer] dictation software. Attempts were made to correct any dictation errors however some typographical errors may persist. Patient was seen during a national state of emergency due to the Covid-19 pandem ic. (Aicha Ortiz) - Lab Data Lab Results 06/11/20 06/11/20 06/11/20 Range/Units 14:53 15:34 15:34 WBC (3.8-10.6) k/uL RBC (4.30-5.90) m/uL Hgb (13.0-17.5) gm/dL Hct (39.0-53.0) % MCV (80.0-100.0) fL MCH (25.0-35.0) pg MCHC (31.0-37.0) g/dL RDW (11.5-15.5) % Plt Count (150-450) k/uL MPV Neutrophils % % Lymphocytes % % Monocytes % % Eosinophils % % Basophils % % Neutrophils # (1.3-7.7) k/uL Lymphocytes # (1.0-4.8) k/uL Monocytes # (0-1.0) k/uL Eosinophils # (0-0.7) k/uL Basophils # (0-0.2) k/uL D-Dimer <0.17 (<0.60) mg/L FEU Sodium 131 L (137-145) mmol/L Potassium 4.1 (3.5-5.1) mmol/L Chloride 98 (98-107) mmol/L Carbon Dioxide 24 (22-30) mmol/L Anion Gap 9 mmol/L BUN 22 H (9-20) mg/dL Creatinine 1.10 (0.66-1.25) mg/dL Est GFR (CKD-EPI)AfAm 83 (>60 ml/min/1.73 sqM) Est GFR (CKD-EPI)NonAf 72 (>60 ml/min/1.73 sqM) Glucose 91 (74-99) mg/dL Calcium 9.9 (8.4-10.2) mg/dL Total Bilirubin 0.8 (0.2-1.3) mg/dL AST 27 (17-59) U/L ALT 39 (4-49) U/L Alkaline Phosphatase 66 (38-126) U/L Troponin I (0.000-0.034) ng/mL Total Protein 6.8 (6.3-8.2) g/dL Albumin 4.3 (3.5-5.0) g/dL Coronavirus (PCR) Not Detected (Not Detectd) 06/11/20 06/11/20 06/11/20 Range/Units 15:34 16:14 16:35 WBC 11.5 H (3.8-10.6) k/uL RBC 4.96 (4.30-5.90) m/uL Hgb 15.2 (13.0-17.5) gm/dL Hct 42.7 (39.0-53.0) % MCV 86.0 (80.0-100.0) fL MCH 30.7 (25.0-35.0) pg MCHC 35.7 (31.0-37.0) g/dL RDW 12.2 (11.5-15.5) % Plt Count 311 (150-450) k/uL MPV 7.3 Neutrophils % 71 % Lymphocytes % 20 % Monocytes % 4 % Eosinophils % 3 % Basophils % 0 % Neutrophils # 8.2 H (1.3-7.7) k/uL Lymphocytes # 2.3 (1.0-4.8) k/uL Monocytes # 0.5 (0-1.0) k/uL Eosinophils # 0.3 (0-0.7) k/uL Basophils # 0.1 (0-0.2) k/uL D-Dimer (<0.60) mg/L FEU Sodium (137-145) mmol/L Potassium (3.5-5.1) mmol/L Chloride (98-107) mmol/L Carbon Dioxide (22-30) mmol/L Anion Gap mmol/L BUN (9-20) mg/dL Creatinine (0.66-1.25) mg/dL Est GFR (CKD-EPI)AfAm (>60 ml/min/1.73 sqM) Est GFR (CKD-EPI)NonAf (>60 ml/min/1.73 sqM) Glucose (74-99) mg/dL Calcium (8.4-10.2) mg/dL Total Bilirubin (0.2-1.3) mg/dL AST (17-59) U/L ALT (4-49) U/L Alkaline Phosphatase (38-126) U/L Troponin I <0.012 (0.000-0.034) ng/mL Total Protein (6.3-8.2) g/dL Albumin (3.5-5.0) g/dL Coronavirus (PCR) Not Detected (Not Detectd) Disposition Is patient prescribed a controlled substance at d/c from ED?: No Time of Disposition: 16:33 <Arminda Francis - Last Filed: 06/11/20 16:38> <Aicha Ortiz - Last Filed: 06/13/20 02:04> Clinical Impression: Loss of perception for taste, Loss of smell, Malaise Disposition: HOME SELF-CARE Condition: Good Instructions (If sedation given, give patient instructions): Coronavirus Disease 2019 (COVID-19) Additional Instructions: Please use medication as discussed. Please follow-up with family doctor in the next 2 days. Quarantine as discussed. Please return to emergency room if the symptoms increase or worsen or for any other concerns. Referrals: Emiliano Cheng MD [Primary Care Provider] - 1-2 days
[2020-06-11 16:35] VITALS: BP 104/74; PULSE 64
== END 2020-06-11 16:37 | disposition home or self-care (01) ==
LOC: EC 14:18
DX: R43.0 Anosmia (principal); R48.1 Agnosia; R53.81 Other malaise; R06.02 Shortness of breath; R53.83 Other fatigue; I25.119 Atherosclerotic heart disease of native coronary artery with unspecified angina pectoris; F32.9 Major depressive disorder, single episode, unspecified; E78.5 Hyperlipidemia, unspecified; F41.9 Anxiety disorder, unspecified; I10 Essential (primary) hypertension; I25.2 Old myocardial infarction; J44.9 Chronic obstructive pulmonary disease, unspecified; K21.9 Gastro-esophageal reflux disease without esophagitis; Z79.899 Other long term (current) drug therapy; Z79.82 Long term (current) use of aspirin; Z88.0 Allergy status to penicillin; Z88.8 Allergy status to other drugs, medicaments and biological substances; Z85.820 Personal history of malignant melanoma of skin; Z95.5 Presence of coronary angioplasty implant and graft
CPT/HCPCS: 36415; 93005; 85379; 80053; 84484; 85025; 87635; 71046; 99284; U0003; U0005

== ENCOUNTER 2020-07-01 06:03 | Observation (INO) | payer BC, MEDICARE ==
[2020-07-01] MEDS ORDERED: HYDROmorphone 0.5 MG/0.5 ML SYRINGE IVP STA (06:09)
[2020-07-01] MEDS ORDERED: ONDANSETRON 4 MG/2 ML VIAL IVP STA (06:09)
[2020-07-01] MEDS ORDERED: SODIUM CHLORIDE 0.9% 1,000 ML IV STA (06:09)
--- NOTE | 2020-07-01 06:10 | ED ---
General Adult HPI - General Stated complaint: Abdominal Pain Time Seen by Provider: 07/01/20 06:05 Source: patient, EMS, RN notes reviewed Mode of arrival: EMS Limitations: no limitations - History of Present Illness Initial comments: This a 60-year-old male presents emergency Department chief complaint left lower quadrant abdominal pain. Patient states she's had some dull mild pain last couple days but states around 2 AM he's had sharp intense pain. Patient states that it radiates down towards his scrotum. Patient denies any fevers or chills he does admit that he's had multiple hernia repairs. Patient denies fever or chills slight nausea no vomiting no severe diarrhea constipation. Denies any injuries. - Related Data Home Medications Medication Instructions Recorded Confirmed ALPRAZolam [Xanax] 0.5 mg PO BID 08/03/13 03/31/19 Venlafaxine HCl [Effexor XR] 75 mg PO DAILY@1500 08/03/13 03/31/19 Atorvastatin [Lipitor] 40 mg PO DAILY 03/08/16 03/31/19 Acetaminophen [Tylenol Extra 1,000 mg PO Q6H PRN 04/15/17 03/31/19 Strength] Ascorbic Acid [Vitamin C] 1,000 mg PO DAILY 03/31/19 03/31/19 Aspirin [Adult Low Dose Aspirin EC] 81 mg PO DAILY 03/31/19 03/31/19 Cholecalciferol [Vitamin D3 (25 1,000 unit PO DAILY 03/31/19 03/31/19 Mcg = 1000 Iu)] HYDROcodone/APAP 7.5-325MG [[place] 1 tab PO Q12HR PRN 03/31/19 04/02/19 7.5-325] Losartan Potassium [Cozaar] 100 mg PO DAILY 03/31/19 03/31/19 Melatonin 3 mg PO HS 03/31/19 03/31/19 Omeprazole 40 mg PO BID 03/31/19 03/31/19 Previous Rx's Medication Instructions Recorded Docusate Sodium [Dok] 100 mg PO DAILY #20 capsule 10/23/17 Allergies Allergy/AdvReac Type Severity Reaction Status Date / Time lorazepam [From Ativan] Allergy Unknown Verified 07/01/20 06:05 Penicillins Allergy Rash/Hives Verified 07/01/20 06:05 Review of Systems ROS Statement: Those systems with pertinent positive or pertinent negative responses have been documented in the HPI. ROS Other: All systems not noted in ROS Statement are negative. Past Medical History Past Medical History: Coronary Artery Disease (CAD), Cancer, Chest Pain / Angina, COPD, GERD/Reflux, Hearing Disorder / Deafness, Hyperlipidemia, Hypertension, Myocardial Infarction ([place]), Musculoskeletal Disorder, Osteoarthritis ([place]) Additional Past Medical History / Comment(s): Barretts esophagus, hiatal hernia, Melanoma CA removed from L shoulder, Herniated discs w/ back pain, hx Torn retina right eye. Last Myocardial Infarction Date:: FEB 2014 History of Any Multi-Drug Resistant Organisms: None Reported Past Surgical History: Back Surgery, Heart Catheterization, Heart Catheterization With Stent, Hernia Repair, Orthopedic Surgery Additional Past Surgical History / Comment(s): hilario foot surgery/achilles tendons, melanoma removed from left shoulder, a total of 5 bilateral inguinal hernia repairs. Heart Cath w/ 2 stents Feb 2014., FATTY TUMOR REMOVED RIGHT BREAST AND LEG. EGD's. Colonoscopy. Past Anesthesia/Blood Transfusion Reactions: No Reported Reaction Additional Past Anesthesia/Blood Transfusion Reaction / Comment(s): . Date of Last Stent Placement:: FEB-2014 Past Psychological History: Anxiety, Depression Past Alcohol Use History: None Reported Past Drug Use History: None Reported - Past Family History Father Family Medical History: Myocardial Infarction ([place]) Additional Family Medical History / Comment(s): mi in his 40's Mother Family Medical History: Cancer, Diabetes Mellitus, Hypertension Additional Family Medical History / Comment(s): Lupus General Exam General appearance: alert, in no apparent distress Head exam: Present: atraumatic, normocephalic, normal inspection Neck exam: Present: normal inspection. Absent: tenderness, meningismus, lymphadenopathy Respiratory exam: Present: normal lung sounds bilaterally. Absent: respiratory distress, wheezes, rales, rhonchi, stridor Cardiovascular Exam: Present: regular rate, normal rhythm, normal heart sounds. Absent: systolic murmur, diastolic murmur, rubs, gallop, clicks GI/Abdominal exam: Present: soft, tenderness (Moderate left lower quadrant), normal bowel sounds. Absent: distended, guarding, rebound, rigid Neurological exam: Present: alert Skin exam: Present: warm, dry, intact, normal color. Absent: rash Course Vital Signs 07/01/20 07/01/20 06:05 07:26 Temperature 98.2 F Pulse Rate 85 73 Respiratory 16 16 Rate Blood Pressure 108/75 106/73 O2 Sat by Pulse 98 100 Oximetry Medical Decision Making - Medical Decision Making CT shows evidence of acute appendicitis. Patient does have moderate leukocytosis, patient was started antibiotics and will be admitted to surgery. - Lab Data Result diagrams: 07/01/20 06:14 07/01/20 06:14 Lab Results 07/01/20 07/01/20 07/01/20 Range/Units 06:14 06:14 06:14 WBC 24.6 H (3.8-10.6) k/uL RBC 5.12 (4.30-5.90) m/uL Hgb 15.3 (13.0-17.5) gm/dL Hct 44.1 (39.0-53.0) % MCV 86.2 (80.0-100.0) fL MCH 29.9 (25.0-35.0) pg MCHC 34.8 (31.0-37.0) g/dL RDW 13.0 (11.5-15.5) % Plt Count 296 (150-450) k/uL MPV 7.9 Neutrophils % 87 % Lymphocytes % 7 % Monocytes % 5 % Eosinophils % 1 % Basophils % 0 % Neutrophils # 21.5 H (1.3-7.7) k/uL Lymphocytes # 1.7 (1.0-4.8) k/uL Monocytes # 1.1 H (0-1.0) k/uL Eosinophils # 0.2 (0-0.7) k/uL Basophils # 0.1 (0-0.2) k/uL Sodium 134 L (137-145) mmol/L Potassium 3.3 L (3.5-5.1) mmol/L Chloride 99 (98-107) mmol/L Carbon Dioxide 26 (22-30) mmol/L Anion Gap 9 mmol/L BUN 19 (9-20) mg/dL Creatinine 1.04 (0.66-1.25) mg/dL Est GFR (CKD-EPI)AfAm 90 (>60 ml/min/1.73 sqM) Est GFR (CKD-EPI)NonAf 78 (>60 ml/min/1.73 sqM) Glucose 99 (74-99) mg/dL Plasma Lactic Acid [place] 0.9 (0.7-2.0) mmol/L Calcium 9.6 (8.4-10.2) mg/dL Total Bilirubin 0.6 (0.2-1.3) mg/dL AST 26 (17-59) U/L ALT 33 (4-49) U/L Alkaline Phosphatase 69 (38-126) U/L Total Protein 6.4 (6.3-8.2) g/dL Albumin 4.0 (3.5-5.0) g/dL Amylase 47 (30-110) U/L Lipase 113 (23-300) U/L Disposition Clinical Impression: Acute appendicitis Disposition: ADMITTED IP TO THIS HOSP Condition: Fair Referrals: Emiliano Cheng MD [Primary Care Provider] - 1-2 days
[2020-07-01 06:34] LABS: Calcium 9.6 mg/dL (8.4-10.2); Potassium 3.3 mmol/L (3.5-5.1); Total Bilirubin 0.6 mg/dL (0.2-1.3); Total Protein 6.4 g/dL (6.3-8.2)
[2020-07-01 06:48] LABS: Basophils # (A) 0.1 k/uL (0-0.2); Basophils % (A) 0 %; Eosinophils # (A) 0.2 k/uL (0-0.7); Eosinophils % (A) 1 %; HCT 44.1 % (39.0-53.0); HGB 15.3 gm/dL (13.0-17.5); Lymphocytes # (A) 1.7 k/uL (1.0-4.8); Lymphocytes % (A) 7 %; MCH 29.9 pg (25.0-35.0); MCHC 34.8 g/dL (31.0-37.0); MCV 86.2 fL (80.0-100.0); Mean Platelet Volume 7.9; Monocytes # (A) 1.1 k/uL (0-1.0); Monocytes % (A) 5 %; Neutrophils # (A) 21.5 k/uL (1.3-7.7); Neutrophils % (A) 87 %; Platelet Count 296 k/uL (150-450); RBC 5.12 m/uL (4.30-5.90); WBC 24.6 k/uL (3.8-10.6)
--- NOTE | 2020-07-01 07:37 | CT ---
EXAMINATION TYPE: CT abdomen pelvis w con DATE OF EXAM: 07/01/2020 COMPARISON: 10/23/2017 INDICATION: LLQ pain DLP: 848.7 mGycm, Automated exposure control for dose reduction was used. CONTRAST: 100 mL of Isovue 300. Study performed without Oral Contrast TECHNIQUE: Axial images were obtained from above the diaphragm to the pubic rami in the axial plane a t 5 mm thick sections. Reconstructed images are reviewed on the computer in the coronal plane. FINDINGS: Limited CT sections are obtained the lung bases. The lung bases are clear. CT ABDOMEN: Liver: Normal Spleen: Normal Pancreas: Normal Adrenal glands: The adrenal glands are normal. Gallbladder: Normal Kidneys: No masses are evident. No hydronephrosis is present. No cysts are present. Delayed images were obtained through the kidneys, which remain unremarkable. Aorta: Mild Vascular calcification is within the aorta. Inferior vena cava: Normal. CT PELVIS: There are a few scattered diverticula within the colon. Some fluid-filled small bowel loops are somew hat prominent. Correlate for mild ileus the study is performed without oral contrast. Appendix: Appendix is thickened with adjacent inflammatory change. Appendiceal wall appears thickened with mild enhancement. Findings are compatible with acute appendicitis. No abscess formation is iden tified. Very minimal free fluid may be within the paracolic gutter on the right. Urinary bladder: Normal. Genitourinary structures: Prostate is prominent. Osseous structures: No suspicious lytic or sclerotic lesions. Postsurgical changes are within the low er lumbar spine with pedicle screws. IMPRESSIONS: 1. Thickened enlarged appendix with adjacent inflammatory changes. Correlate for acute appendicitis. 2. Mild ileus may be present.
[2020-07-01] MEDS ORDERED: metroNIDAZOLE-NS PMX 500 MG in SALINE 1 100ML.BAG IVPB STA (07:48)
[2020-07-01] MEDS ORDERED: ONDANSETRON 4 MG/2 ML VIAL IVP PRN (07:53)
[2020-07-01] MEDS ORDERED: NALOXONE 0.4 MG/ML 1 ML VIAL IV PRN (07:53)
[2020-07-01] MEDS ORDERED: HYDROmorphone 1 MG/ML 1 ML SYRINGE IVP PRN (07:53)
[2020-07-01] MEDS ORDERED: HYDROmorphone 0.5 MG/0.5 ML SYRINGE IVP PRN (07:53)
[2020-07-01 12:11] LABS: Appearance,Urine Clear (Clear); Bilirubin,Urine Negative (Negative); Blood,Urine Negative (Negative); Color,Urine Yellow; Glucose,Urine (UA) Negative (Negative); Ketones,Urine Negative (Negative); Leukocyte Esterase,Urine Negative (Negative); Nitrite,Urine Negative (Negative); Protein,Urine Negative (Negative); Urobilinogen,Urine <2.0 mg/dL (<2.0)
[2020-07-01 12:21] LABS: Specific Gravity,Urine 1.049 (1.001-1.035)
[2020-07-01] MEDS ORDERED: fentaNYL (PF) 50 MCG/ML 2 ML AMP ONE (12:42)
[2020-07-01] MEDS ORDERED: HYDROmorphone (PF) 1 MG/ML ONE (12:42)
[2020-07-01] MEDS ORDERED: HEPARIN SODIUM,PORCINE 5,000 UNIT/ML 1 ML VIAL ONE (12:42)
[2020-07-01] MEDS ORDERED: LIDOCAINE 1% INJ 10MG/ML (20 ML MDV) ONE (12:42)
[2020-07-01] MEDS ORDERED: PROPOFOL 10 MG/ML 20 ML VIAL IV ONE (12:42)
[2020-07-01] MEDS ORDERED: MIDAZOLAM 2 MG/2 ML VIAL ONE (12:42)
[2020-07-01] MEDS ORDERED: ROCURONIUM 10 MG/ML (5 ML VIAL) IV ONE (12:42)
[2020-07-01] MEDS ORDERED: KETOROLAC 15 MG/ML 1 ML VIAL ONE (12:42)
[2020-07-01] MEDS ORDERED: LACTATED RINGERS 1,000 ML IV ONE ×2 (12:42→13:41)
--- NOTE | 2020-07-01 12:44 | P.GSHP ---
History of Present Illness H&P Date: 07/01/20 60-year-old male presented to the emergency department with severe abdominal pain. He states that he has had some abdominal discomfort over the past month, however at 2 AM, he had a new abdominal pain in the lower abdomen that was unrelenting. He tried taking Tums and Pepto-Bismol with no success. He then presented to the emergency department. He admits to a lack of appetite. He complains of some nausea but no vomiting episodes. He did have a workup completed that included laboratory draw along with CT of the abdomen and pelvis. Laboratory dry revealed significant leukocytosis of greater than 25. CT of the abdomen and pelvis was concerning for a thickened appendix and acute appendici tis. Patient's pain is notably in the bilateral lower quadrants, more so on the right lower quadrant. He states he has had multiple inguinal hernia procedures previously. He has no additional complaints at this time. - Review of Systems All systems: negative Past Medical History Past Medical History: Coronary Artery Disease (CAD), Cancer, Chest Pain / Angina, COPD, GERD/Reflux, Hearing Disorder / Deafness, Hyperlipidemia, Hypertension, Myocardial Infarction (AR), Musculoskeletal Disorder, Osteoarthritis (OA) Additional Past Medical History / Comment(s): Barretts esophagus, hiatal hernia, Melanoma CA removed from L shoulder, Herniated discs w/ back pain, hx Torn retina right eye. Last Myocardial Infarction Date:: FEB 2014 History of Any Multi-Drug Resistant Organisms: None Reported Past Surgical History: Back Surgery, Heart Catheterization, Heart Catheterization With Stent, Hernia Repair, Orthopedic Surgery Additional Past Surgical History / Comment(s): hilario foot surgery/achilles tendons, melanoma removed from left shoulder, a total of 5 bilateral inguinal hernia repairs. Heart Cath w/ 2 stents Feb 2014., FATTY TUMOR REMOVED RIGHT BREAST AND LEG. EGD's. Colonoscopy. Past Anesthesia/Blood Transfusion Reactions: No Reported Reaction Additional Past Anesthesia/Blood Transfusion Reaction / Comment(s): . Date of Last Stent Placement:: FEB-2014 Past Psychological History: Anxiety, Depression Additional Psychological History / Comment(s): . Smoking Status: Current every day smoker Past Alcohol Use History: None Reported Additional Past Alcohol Use History / Comment(s): SMOKES 2 cigs a day, SMOKING SINCE HIS 20'S. Past Drug Use History: None Reported - Past Family History Father Family Medical History: Myocardial Infarction (AR) Additional Family Medical History / Comment(s): mi in his 40's Mother Family Medical History: Cancer, Diabetes Mellitus, Hypertension Additional Family Medical History / Comment(s): Lupus Medications and Allergies Home Medications Medication Instructions Recorded Confirmed Type Atorvastatin [Lipitor] 40 mg PO DAILY 03/08/16 07/01/20 History Aspirin [Adult Low Dose Aspirin EC] 81 mg PO DAILY 03/31/19 07/01/20 History Losartan Potassium [Cozaar] 100 mg PO DAILY 03/31/19 07/01/20 History ALPRAZolam [Xanax] 0.5 mg PO BID 07/01/20 07/01/20 History Cyclobenzaprine [Flexeril] 10 mg PO DAILY 07/01/20 07/01/20 History Dicyclomine [Bentyl] 10 mg PO TID 07/01/20 07/01/20 History Esomeprazole Magnesium [NexIUM] 40 mg PO BID 07/01/20 07/01/20 History Melatonin 10 mg PO HS PRN 07/01/20 07/01/20 History Metoprolol Tartrate [Lopressor] 50 mg PO BID 07/01/20 07/01/20 History Venlafaxine HCl ER [Effexor Xr] 150 mg PO DAILY 07/01/20 07/01/20 History hydroCHLOROthiazide 25 mg PO DAILY 07/01/20 07/01/20 History Allergies Allergy/AdvReac Type Severity Reaction Status Date / Time lorazepam [From Ativan] Allergy Unknown Verified 07/01/20 10:18 Penicillins Allergy Rash/Hives Verified 07/01/20 10:18 Surgical - Exam Osteopathic Statement: *. No significant issues noted on an osteopathic structural exam other than those noted in the History and Physical/Consult. Vital Signs Temp Pulse Resp BP Pulse Ox 98.2 F 85 16 108/75 98 07/01/20 06:05 07/01/20 06:05 07/01/20 06:05 07/01/20 06:05 07/01/20 06:05 - General well nourished, no distress - Eyes PERRL - ENT normal mucosa, no hearing loss - Respiratory normal respiratory effort - Abdomen Soft, tender to palpation in right lower quadrant, some tenderness in left lower quadrant, nondistended, no rebound, no guarding - Psychiatric oriented to time, oriented to person, oriented to place Results - Labs 07/01/20 06:14 07/01/20 06:14 Abnormal Lab Results - Last 24 Hours (Table) 07/01/20 07/01/20 07/01/20 Range/Units 06:14 06:14 11:40 WBC 24.6 H (3.8-10.6) k/uL Neutrophils # 21.5 H (1.3-7.7) k/uL Monocytes # 1.1 H (0-1.0) k/uL Sodium 134 L (137-145) mmol/L Potassium 3.3 L (3.5-5.1) mmol/L Ur Specific [place] 1.049 H (1.001-1.035) Diabetes panel 07/01/20 Range/Units 06:14 Sodium 134 L (137-145) mmol/L Potassium 3.3 L (3.5-5.1) mmol/L Chloride 99 (98-107) mmol/L Carbon Dioxide 26 (22-30) mmol/L BUN 19 (9-20) mg/dL Creatinine 1.04 (0.66-1.25) mg/dL Glucose 99 (74-99) mg/dL Calcium 9.6 (8.4-10.2) mg/dL AST 26 (17-59) U/L ALT 33 (4-49) U/L Alkaline Phosphatase 69 (38-126) U/L Total Protein 6.4 (6.3-8.2) g/dL Albumin 4.0 (3.5-5.0) g/dL Calcium panel 07/01/20 Range/Units 06:14 Calcium 9.6 (8.4-10.2) mg/dL Albumin 4.0 (3.5-5.0) g/dL Pituitary panel 07/01/20 Range/Units 06:14 Sodium 134 L (137-145) mmol/L Potassium 3.3 L (3.5-5.1) mmol/L Chloride 99 (98-107) mmol/L Carbon Dioxide 26 (22-30) mmol/L BUN 19 (9-20) mg/dL Creatinine 1.04 (0.66-1.25) mg/dL Glucose 99 (74-99) mg/dL Calcium 9.6 (8.4-10.2) mg/dL Adrenal panel 07/01/20 Range/Units 06:14 Sodium 134 L (137-145) mmol/L Potassium 3.3 L (3.5-5.1) mmol/L Chloride 99 (98-107) mmol/L Carbon Dioxide 26 (22-30) mmol/L BUN 19 (9-20) mg/dL Creatinine 1.04 (0.66-1.25) mg/dL Glucose 99 (74-99) mg/dL Calcium 9.6 (8.4-10.2) mg/dL Total Bilirubin 0.6 (0.2-1.3) mg/dL AST 26 (17-59) U/L ALT 33 (4-49) U/L Alkaline Phosphatase 69 (38-126) U/L Total Protein 6.4 (6.3-8.2) g/dL Albumin 4.0 (3.5-5.0) g/dL Assessment and Plan Plan: 60-year-old male with acute appendicitis. Patient has been started on IV antibiotics. He has been kept nothing by mouth. Plan is for laparoscopic appendectomy, possible open. Risks, benefits and alternatives were provided to the patient. He is provided consent to attending the operating suite. We will place a consultation for his primary care physician for medical management during his admission. Further recommendations after procedure.
[2020-07-01] MEDS ORDERED: LIDOCAINE 1%-EPI 1:100,000 20 ML VIAL SQ ONE (13:12)
[2020-07-01] MEDS ORDERED: HYDROcodone/APAP 5-325MG 1 EACH TAB PO PRN (13:46)
--- NOTE | 2020-07-01 13:56 | P.OP ---
Date of Procedure: 07/01/20 Preoperative Diagnosis: Acute appendicitis Postoperative Diagnosis: Acute appendicitis Procedure(s) Performed: Laparoscopic appendectomy Anesthesia: BARBARA Surgeon: Anum Stephen Pathology: other (Appendix) Condition: stable Disposition: floor Indications for Procedure: 60-year-old male presented to the emergency department with acute abdominal pain. On workup, patient was found to have acute appendicitis. He was started on IV antibiotics and kept nothing by mouth. Plan is for appendectomy. Patient was explained risks, benefits and alternatives to the procedure and did provide consent prior to attending the operating suite. Operative Findings: Thickened and inflamed retrocecal appendix Description of Procedure: The patient was brought to the operating suite and placed in supine position on the operating table. Sedation was provided by anesthesia and the patient underwent endotracheal intubation. The patient was then prepped and draped in regular sterile fashion. A super umbilical incision was made dissection was carried to the fascia. The fascia was incised and a 12 mm trocar was placed. Pneumoperitoneum was then achieved. The patient was then positioned appropriately. 2 additional 5 m ports were placed. One was placed in the suprapubic region and another in the left lower quadrant. At this point, the small bowel was medialized and examined was performed of the cecum. The appendix was not clearly visualized at this point. Dissection was carried to dissect the cecum from its attachments against the retroperitoneum and abdominal wall. During the dissection, the base of the appendix was encountered. Further dissection revealed the full appendix. A window was then created between the appendix and the mesoappendix. The mesoappendix was dissected free from the appendix using LigaSure device. Once completely freed, the base of the appendix was clearly visualized. A stapler device was then fired across the base of the appendix and the appendix was removed from the abdomen in an Endo Catch bag. Examination revealed hemostasis after mild electrocautery use. Irrigation was then used in the right lower quadrant and suctioned. Hemostasis was noted to be maintained. The 12 mm trocar fascial site was then closed with interrupted 0 Vicryl suture under direct visualization using a Paul Larios device. Pneumoperitoneum was then released. All ports removed from the abdomen. Incisions were then closed using 4-0 Vicryl subcuticular suture.
[2020-07-01] MEDS ORDERED: MELATONIN 5 MG TABLET PO PRN (14:02)
[2020-07-01] MEDS: metroNIDAZOLE-NS PMX 500 MG in SALINE 1 100ML.BAG IVPB SCH ×2 (15:34→23:40)
[2020-07-01] MEDS: LACTATED RINGERS 1,000 ML IV SCH ×2 (15:34→23:22)
[2020-07-01] MEDS: HEPARIN SODIUM,PORCINE/PF 5,000 UNIT/0.5 ML SYRINGE SQ SCH ×2 (15:35→23:41)
[2020-07-01] MEDS: ALPRAZolam 0.5 MG TAB PO SCH (20:46)
[2020-07-01] MEDS: PANTOPRAZOLE 40 MG TABLET PO SCH (20:46)
[2020-07-01] MEDS: METOPROLOL TARTRATE 50 MG TAB PO SCH (20:46)
[2020-07-02 04:36] VITALS: RESP 16; TEMP 98.2
[2020-07-02] MEDS: LACTATED RINGERS 1,000 ML IV SCH (05:05)
[2020-07-02 08:11] LABS: Basophils % (A) 0 %; Eosinophils % (A) 1 %; HCT 32.4 % (39.0-53.0); Lymphocytes # (A) 1.4 k/uL (1.0-4.8); Lymphocytes % (A) 18 %; MCHC 36.6 g/dL (31.0-37.0); MCV 87.4 fL (80.0-100.0); Mean Platelet Volume 7.3; Monocytes # (A) 0.5 k/uL (0-1.0); Monocytes % (A) 7 %; Neutrophils # (A) 5.4 k/uL (1.3-7.7); Neutrophils % (A) 73 %; Platelet Count 202 k/uL (150-450); RDW 12.5 % (11.5-15.5); WBC 7.4 k/uL (3.8-10.6)
[2020-07-02 08:19] LABS: HGB 11.8 gm/dL (13.0-17.5)
[2020-07-02] MEDS: ALPRAZolam 0.5 MG TAB PO SCH (08:31)
[2020-07-02] MEDS: PANTOPRAZOLE 40 MG TABLET PO SCH (08:31)
[2020-07-02] MEDS: METOPROLOL TARTRATE 50 MG TAB PO SCH (08:31)
[2020-07-02] MEDS: HEPARIN SODIUM,PORCINE/PF 5,000 UNIT/0.5 ML SYRINGE SQ SCH (08:31)
[2020-07-02] MEDS: metroNIDAZOLE-NS PMX 500 MG in SALINE 1 100ML.BAG IVPB SCH (08:38)
[2020-07-02 08:42] LABS: ALT 21 U/L (4-49); AST 24 U/L (17-59); African American GFR (CKD) >90 (>60 ml/min/1.73 sqM); Albumin 2.5 g/dL (3.5-5.0); Albumin/Globulin Ratio 1.3; Alkaline Phosphatase 45 U/L (38-126); Anion Gap 6 mmol/L; Blood Urea Nitrogen 10 mg/dL (9-20); Calcium 8.4 mg/dL (8.4-10.2); Carbon Dioxide 24 mmol/L (22-30); Chloride 105 mmol/L (98-107); Glucose 81 mg/dL (74-99); Non-African American GFR(CKD) 81 (>60 ml/min/1.73 sqM); Potassium 3.2 mmol/L (3.5-5.1); Sodium 135 mmol/L (137-145); Total Bilirubin 0.5 mg/dL (0.2-1.3); Total Protein 4.5 g/dL (6.3-8.2)
[2020-07-02] MEDS ORDERED: ATORVASTATIN 40 MG TAB PO SCH (09:00)
[2020-07-02] MEDS ORDERED: CYCLOBENZAPRINE 10 MG TAB PO SCH (09:00)
[2020-07-02] MEDS ORDERED: LOSARTAN 50 MG TAB PO SCH (09:00)
[2020-07-02] MEDS ORDERED: ASPIRIN 81 MG PO SCH (09:00)
[2020-07-02] MEDS ORDERED: VENLAFAXINE HCL ER 150 MG CAP PO SCH (09:00)
[2020-07-02] MEDS ORDERED: POTASSIUM CHLORIDE ER 20 MEQ TAB.ER PO STA (09:11)
[2020-07-02] MEDS ORDERED: SENNOSIDES 8.6 MG TAB PO PRN (10:06)
--- NOTE | 2020-07-02 10:08 | P.DS ---
Providers Date of admission: 07/01/20 08:15 Attending physician: Anum Stephen DO Consults: 07/01/20 12:45 Consult Physician Routine Consulting Provider: Emiliano Cheng Consult Reason/Comments: Med mgmt, pt known to you Do you want consulting provider notified?: Yes Primary care physician: Emiliano Cheng Hospital Course: 60-year-old male presented to the emergency department with complaints of severe lower abdominal pain. On workup, he was found to have acute appendicitis. He is taken for laparoscopic appendectomy. Patient was then sent to medical surgical floor with internal medicine consultation. Patient's pain improved during his admission. He began tolerating a diet and it was advanced as tolerated. Patient's bowel concerns were addressed. He is surgically stable for discharge. Procedures: Laparoscopic appendectomy Patient Condition at Discharge: Fair Plan - Discharge Summary Discharge Rx Participant: No New Discharge Prescriptions: New HYDROcodone/APAP 5-325MG [[place] 5-325] 1 each PO Q6HR PRN #12 tab PRN Reason: Pain Sennosides [Senna] 8.6 mg PO DAILY #30 tablet Continue Atorvastatin [Lipitor] 40 mg PO DAILY Losartan Potassium [Cozaar] 100 mg PO DAILY Aspirin [Adult Low Dose Aspirin EC] 81 mg PO DAILY hydroCHLOROthiazide 25 mg PO DAILY Dicyclomine [Bentyl] 10 mg PO TID Cyclobenzaprine [Flexeril] 10 mg PO DAILY Metoprolol Tartrate [Lopressor] 50 mg PO BID Esomeprazole Magnesium [NexIUM] 40 mg PO BID ALPRAZolam [Xanax] 0.5 mg PO BID Venlafaxine HCl ER [Effexor XR] 150 mg PO DAILY Melatonin 10 mg PO HS PRN PRN Reason: Insomnia Discharge Medication List Atorvastatin [Lipitor] 40 mg PO DAILY 03/08/16 [History] Aspirin [Adult Low Dose Aspirin EC] 81 mg PO DAILY 03/31/19 [History] Losartan Potassium [Cozaar] 100 mg PO DAILY 03/31/19 [History] ALPRAZolam [Xanax] 0.5 mg PO BID 07/01/20 [History] Cyclobenzaprine [Flexeril] 10 mg PO DAILY 07/01/20 [History] Dicyclomine [Bentyl] 10 mg PO TID 07/01/20 [History] Esomeprazole Magnesium [NexIUM] 40 mg PO BID 07/01/20 [History] Melatonin 10 mg PO HS PRN 07/01/20 [History] Metoprolol Tartrate [Lopressor] 50 mg PO BID 07/01/20 [History] Venlafaxine HCl ER [Effexor XR] 150 mg PO DAILY 07/01/20 [History] hydroCHLOROthiazide 25 mg PO DAILY 07/01/20 [History] HYDROcodone/APAP 5-325MG [[place] 5-325] 1 each PO Q6HR PRN #12 tab 07/02/20 [Rx] Sennosides [Senna] 8.6 mg PO DAILY #30 tablet 07/02/20 [Rx] Follow up Appointment(s)/Referral(s): Emiliano Cheng MD [Primary Care Provider] - 1-2 days Anum Stephen DO [Doctor of Osteopathic Medicine] - 2 Weeks Patient Instructions/Handouts: Laparoscopic Appendectomy (DC) Activity/Diet/Wound Care/Special Instructions: No lifting greater than 5 pounds Justice a soft diet Okay to shower, do not scrub on incisions Take pain medication as necessary, if taking narcotic pain medication continue stool softener Discharge Disposition: HOME SELF-CARE
[2020-07-02] MEDS ORDERED: SODIUM CHLORIDE 0.9% 1,000 ML IV ONE (10:57)
--- NOTE | 2020-07-02 11:47 | P.CONS ---
History of Present Illness - Reason for Consult Consult date: 07/01/20 Medical management. Requesting physician: Anum Stephen - Chief Complaint Appendicitis post appendectomy. - History of Present Illness HISTORY OF PRESENT ILLNESS: This is a 60-year-old male one of my patient with a previous medical history significant for coronary artery disease status post non-ST elevation myocardial infarction with PCI back in 2014 in proximal and mid LAD, history of hypertension and hypertensive cardiovascular disease, hyperlipidemia, chronic tobacco use and dependence with COPD, severe GERD with Tran's esophagus, had a recent surveillance EGD that did not show any evidence of any Tran's at this time, patient stated that he had lots of peanuts yesterday, and he went to bed around 10 PM, and he woke up at 2:00 in the morning with severe right lower quadrant dull pain associated with nausea but no vomiting radiating from the right lower quadrant to the left lower quadrant his went to work and he was tossing and turning he did receive multiple times without any benefits he went to bed and woke up at around 4:00 in the morning with severe pain he did try Pepto-Bismol without any help, he called his and asked her to come and take him to the ER for evaluation, he cold 911 at the same time, EMS came and took h im to the ER and had a computed tomography scan of the abdomen and pelvis that showed appendicitis with significant leukocytosis of 25,000, patient was started on Cipro and metronidazole he was seen by Dr. Stephen and he was taken to the OR for laparoscopic appendectomy, I was asked to see him for medical management. REVIEW OF SYSTEMS: Constitutional: No documented fever, no chills, no night sweats. No weight change. No weakness, fatigue or lethargy. No daytime sleepiness. HEENT: No headache. No blurred vision or double vision, no loss of vision. No loss of Hearing, no ringing in the ears, no dizziness. No nasal drainage or congestion. No epistaxis. No sore throat. Lungs: No shortness of breath, no cough, no sputum production. No wheezing. Reports dyspnea with activity. Cardiovascular: No chest pain, no lower extremity edema. No palpitations. No paroxysmal nocturnal dyspnea. No orthopnea. No lightheadedness or dizziness. No syncopal episodes. Abdominal: Reports abdominal pain. positive for nausea, vomiting. No diarrhea. No constipation. No bloody or tarry stools reports loss of appetite. Genitourinary: No dysuria, increased frequency, urgency. No urinary retention. Musculoskeletal: No myalgias. No muscle weakness, no gait dysfunction, no frequent falls. No back pain. No neck pain. Integumentary: No wounds, no lesions. No rash or pruritus. No unusual bru ising. No change in hair or nails. Neurologic: No aphasia. No facial droop. No change in mentation. No head injury. No headache. No paralysis. No paresthesia. Psychiatric: No depression. No anxiety. No mood swings. Endocrine: No abnormal blood sugars. No weight change. PAST MEDICAL HISTORY: CAD post-PCI of the proximal and mid LAD 2014 Hypertension and hypertensive cardiovascular disease. Hyperlipidemia. Severe GERD with Tran's esophagus. Chronic tobacco use and dependence. COPD. Osteoarthritis. History of melanoma. Enlarged prostate. 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 PAST SURGICAL HISTORY: Bilateral Achilles tendon repair. Left inguinal hernia repair 5. Left heart catheterization with PCI of the LAD 2014. EGD and colonoscopy. Lipomas removed from the right breast and leg. melanoma resection from the left shoulder. SOClIAL HISTORY: Patient started to smoke about a pack every day since he was 19-year-old, he currently smokes about half a pack every day, he continues to smoke, he quits on and off, he denies any alcohol injection, no drug use or abuse, he drinks a lot of iced tea, he denies any marijuana use or abuse. FAMILY HISTORY: Father is 86-year-old with a history of the CAD post-NM and currently has congestive heart failure, mother at age of 82 from malignant glioblastoma multiforme and she had hypertension diabetes and lupus, patient has 2 brothers both with COPD, one sister PHYSICAL EXAMINATION: General: 60-year-old male laying down in bed in no apparent distress. HEENT: Head is atraumatic, normocephalic, pupils were equal round reactive to light and recommendation, extraocular muscle movement were intact, sclera nonicteric, conjunctivae were pale, mucous membranes of the mouth are somewhat d ry. Neck: Supple, no JVP, normal carotid upstroke bilaterally, no lymphadenopathy. Chest: Decreased breath sounds at the bases, few rhonchi, no expiratory wheezes, no chest wall tenderness, no intercostal retractions. Heart: First heart sound is normal, second heart sounds normal there is systolic pressure murmur 2/6 located in the left sternal border. Abdomen: Soft, nontender, nondistended, positive bowel sounds, laparoscopic sites appear to be clean without any drainage or erythema. Extremities: There is no edema no calf tenderness DP +2 bilaterally. Neurologic examination: Patient is awake alert and oriented X 3, cranial nerves II-12 appear grossly intact, muscle power were 5 out of 5 in upper extremities and 5 out of 5 in bilateral lower extremities, deep tendon reflexes normal bi laterally. ASSESSMENT AND PLAN: 1. Postoperative day #0 status post laparoscopic appendectomy. Continue IV fluid resuscitation the form of D5 half-normal saline at 1 25 mL an hour, continue patient on ciprofloxacin as well as metronidazole as ordered by general surgery, continue current pain management, patient was instructed to use incentive spirometer, continue clear liquid diet for the next 24 hours, advance as tolerated, monitor the patient very closely patient can be discharged home in the next 24 hours. 2. CAD status post left heart catheterization with PCI of the LAD back in 01/28. Continue aspirin 81 mg once every day, continue atorvastatin 40 mg orally once every day, continue patient on metoprolol 50 mg orally twice every day. 3. Hypertension and hypertensive cardiovascular disease. Continue losartan 100 mg orally once a day and metoprolol 50 mg orally twice every day. 4. Hyperlipidemia. Continue Lipitor 40 mg orally once a day. 5. COPD. encourage the use of incentive spirometer, continue DuoNeb as needed. 6. History of Tran's esophagus. Continue Nexium 40 mg orally twice every day or Protonix 40 mg orally twice every day. 7. History of melanoma removed from the shoulder. In remission. 8. Depression. Continue Effexor 150 mg orally once every day. 9. Anxiety disorder. Continue Xanax 1 mg orally 2 times every day. 10. DVT prophylaxis. Continue heparin 5000 units subcutaneously every 12 hours. 11. GI prophylaxis. continue Protonix 40 mg orally twice every day. 12. Thank you Dr. Stephen for the consult we'll follow the patient with you. Past Medical History Past Medical History: Coronary Artery Disease (CAD), Cancer, Chest Pain / Angina, COPD, GERD/Reflux, Hearing Disorder / Deafness, Hyperlipidemia, Hypertension, Myocardial Infarction (NM), Musculoskeletal Disorder, Osteoarthr itis (OA) Additional Past Medical History / Comment(s): Barretts esophagus, hiatal hernia, Melanoma CA removed from L shoulder, Herniated discs w/ back pain, hx Torn retina right eye. Last Myocardial Infarction Date:: FEB 2014 History of Any Multi-Drug Resistant Organisms: None Reported Past Surgical History: Back Surgery, Heart Catheterization, Heart Catheterization With Stent, Hernia Repair, Orthopedic Surgery Additional Past Surgical History / Comment(s): hilario foot surgery/achilles tendons, melanoma removed from left shoulder, a total of 5 bilateral inguinal hernia repairs. Heart Cath w/ 2 stents Feb 2014., FATTY TUMOR REMOVED RIGHT BREAST AND LEG. EGD's. Colonoscopy. Past Anesthesia/Blood Transfusion Reactions: No Reported Reaction Additional Past Anesthesia/Blood Transfusion Reaction / Comm: . Date of Last Stent Placement:: FEB-2014 Past Psychological History: Anxiety, Depression Additional Psychological History / Comment(s): . Smoking Status: Current every day smoker Past Alcohol Use History: None Reported Additional Past Alcohol Use History / Comment(s): SMOKES 2 cigs a day, SMOKING SINCE HIS 20'S. Past Drug Use History: None Reported - Past Family History Father Family Medical History: Myocardial Infarction (NM) Additional Family Medical History / Comment(s): mi in his 40's Mother Family Medical History: Cancer, Diabetes Mellitus, Hypertension Additional Family Medical History / Comment(s): Lupus Medications and Allergies Home Medications Medication Instructions Recorded Confirmed Type Atorvastatin [Lipitor] 40 mg PO DAILY 03/08/16 07/01/20 History Aspirin [Adult Low Dose Aspirin EC] 81 mg PO DAILY 03/31/19 07/01/20 History Losartan Potassium [Cozaar] 100 mg PO DAILY 03/31/19 07/01/20 History ALPRAZolam [Xanax] 0.5 mg PO BID 07/01/20 07/01/20 History Cyclobenzaprine [Flexeril] 10 mg PO DAILY 07/01/20 07/01/20 History Dicyclomine [Bentyl] 10 mg PO TID 07/01/20 07/01/20 History Esomeprazole Magnesium [NexIUM] 40 mg PO BID 07/01/20 07/01/20 History Melatonin 10 mg PO HS PRN 07/01/20 07/01/20 History Metoprolol Tartrate [Lopressor] 50 mg PO BID 07/01/20 07/01/20 History Venlafaxine HCl ER [Effexor XR] 150 mg PO DAILY 07/01/20 07/01/20 History hydroCHLOROthiazide 25 mg PO DAILY 07/01/20 07/01/20 History Ciprofloxacin HCl [Cipro] 500 mg PO Q12HR 5 Days #10 tab 07/02/20 Rx HYDROcodone/APAP 5-325MG [[place] 1 each PO Q6HR PRN #12 tab 07/02/20 Rx 5-325] Sennosides [Senna] 8.6 mg PO DAILY #30 tablet 07/02/20 Rx metroNIDAZOLE [Flagyl] 500 mg PO TID 5 Days #15 tab 07/02/20 Rx Allergies Allergy/AdvReac Type Severity Reaction Status Date / Time lorazepam [From Ativan] Allergy Unknown Verified 07/01/20 10:18 Penicillins Allergy Rash/Hives Verified 07/01/20 10:18 Physical Exam Vitals: Vital Signs Temp Pulse Pulse Resp BP BP Pulse Ox 07/01/20 11:38 98.2 F 73 16 110/72 100 07/01/20 08:55 98 F 07/01/20 08:11 70 16 116/76 99 07/01/20 07:26 73 16 106/73 100 07/01/20 06:05 98.2 F 85 16 108/75 98 Intake and Output 06/30/20 07/01/20 07/01/20 22:59 06:59 14:59 Intake Total 1100 Output Total 5 Balance 1095 Intake: IV 1100 Output: Estimated Blood Loss 5 Other: Weight 77.111 kg 77.111 kg Results CBC & Chem 7: 07/02/20 07:17 07/02/20 07:17 Labs: Abnormal Lab Results - Last 24 Hours (Table) 07/01/20 07/01/20 07/01/20 Range/Units 06:14 06:14 11:40 WBC 24.6 H (3.8-10.6) k/uL Neutrophils # 21.5 H (1.3-7.7) k/uL Monocytes # 1.1 H (0-1.0) k/uL Sodium 134 L (137-145) mmol/L Potassium 3.3 L (3.5-5.1) mmol/L Ur Specific [place] 1.049 H (1.001-1.035)
--- NOTE | 2020-07-02 11:51 | P.PN ---
Subjective Progress Note Date: 07/02/20 HISTORY OF PRESENT ILLNESS: This is a 60-year-old male one of my patient with a previous medical history significant for coronary artery disease status post non-ST elevation myocardial infarction with PCI back in 2014 in proximal and mid LAD, history of hypertension and hypertensive cardiovascular disease, hyperlipidemia, chronic tobacco use and dependence with COPD, severe GERD with Tran's esophagus, had a recent surveillance EGD that did not show any evidence of any Tran's at this time, patient stated that he had lots of peanuts yesterday, and he went to bed around 10 PM, and he woke up at 2:00 in the morning with severe right lower quadrant dull pain associated with nausea but no vomiting radiating from the right lower quadrant to the left lower quadrant his went to work and he was tossing and turning he did receive multiple times without any benefits he went to bed and woke up at around 4:00 in the morning with severe pain he did try Pepto-Bismol without any help, he called his and asked her to come and take him to the ER for evaluation, he cold 911 at the same time, EMS came and took him to the ER and had a computed tomography scan of the abdomen and pelvis that showed appendicitis with significant leukocytosis of 25,000, patient was started on Cipro and metronidazole he was seen by Dr. Stephen and he was taken to the OR for laparoscopic appendectomy, I was asked to see him for medical management. 07/02: Patient is laying down in bed in no apparent distress, he is tolerating a liquid diet very well, he would be started on regular diet today, his blood pressure appears to be a bit on the lower side, I gave the instruction to the nursing staff to give him a bolus of normal saline 1 L over one hour, monitor the blood pressure very closely hold losartan for now, continue metoprolol 50 mg orally twice every day and hold for systolic blood pressure less than or equal to 100. Patient has not had any chest pain or any shortness breath, he has no abdominal pain, nausea vomiting or diarrhea he has not had a bowel movement, however he continues to pass gas. REVIEW OF SYSTEMS: Constitutional: No documented fever, no chills, no night sweats. No weight change. No weakness, fatigue or lethargy. No daytime sleepiness. HEENT: No headache. No blurred vision or double vision, no loss of vision. No loss of Hearing, no ringing in the ears, no dizziness. No nasal drainage or congestion. No epistaxis. No sore throat. Lungs: No shortness of breath, no cough, no sputum production. No wheezing. Reports dyspnea with activity. Cardiovascular: No chest pain, no lower extremity edema. No palpitations. No paroxysmal nocturnal dyspnea. No orthopnea. No lightheadedness or dizziness. No syncopal episodes. Abdominal: Reports abdominal pain. positive for nausea, vomiting. No diarrhea. No constipation. No bloody or tarry stools reports loss of appetite. Genitourinary: No dysuria, increased frequency, urgency. No urinary retention. Musculoskeletal: No myalgias. No muscle weakness, no gait dysfunction, no frequent falls. No back pain. No neck pain. Integumentary: No wounds, no lesions. No rash or pruritus. No unusual bruising. No change in hair or nails. Neurologic: No aphasia. No facial droop. No change in mentation. No head injury. No headache. No paralysis. No paresthesia. Psychiatric: No depression. No anxiety. No mood swings. Endocrine: No abnormal blood sugars. No weight change. PHYSICAL EXAMINATION: General: 60-year-old male laying down in bed in no apparent distress. HEENT: Head is atraumatic, normocephalic, pupils were equal round reactive to light and recommendation, extraocular muscle movement were intact, sclera nonicteric, conjunctivae were pale, mucous membranes of the mouth are somewhat dry. Neck: Supple, no JVP, normal carotid upstroke bilaterally, no lymphadenopathy. Chest: Decreased breath sounds at the bases, few rhonchi, no expiratory wheezes, no chest wall tenderness, no intercostal retractions. Heart: First heart sound is normal, second heart sounds normal there is systolic pressure murmur 2/6 located in the left sternal border. Abdomen: Soft, nontender, nondistended, positive bowel sounds, laparoscopic sites appear to be clean without any drainage or erythema. Extremities: There is no edema no calf tenderness DP +2 bilaterally. Neurologic examination: Patient is awake alert and oriented X 3, cranial nerves II-12 appear grossly intact, muscle power were 5 out of 5 in upper extremities and 5 out of 5 in bilateral lower extremities, deep tendon reflexes normal bilaterally. ASSESSMENT AND PLAN: 1. Postoperative day #1 status post laparoscopic appendectomy. Continue IV fluid resuscitation the form of D5 half-normal saline at 1 25 mL an hour, continue patient on as well a ceftriaxone and metronidazole as ordered by general surgery, continue current pain management, patient was instructed to use incentive spirometer, continue clear liquid diet for the next 24 hours, advance as tolerated, monitor the patient very closely patient can be discharged home in the next 24 hours. 2. CAD status post left heart catheterization with PCI of the LAD back in 01/28/2015. Continue aspirin 81 mg once every day, continue atorvastatin 40 mg orally once every day, continue patient on metoprolol 50 mg orally twice every day. 3. Hypertension and hypertensive cardiovascular disease. Continue losartan 100 mg orally once a day and metoprolol 50 mg orally twice every day. 4. Hyperlipidemia. Continue Lipitor 40 mg orally once a day. 5. COPD. encourage the use of incentive spirometer, continue DuoNeb as needed. 6. History of Tran's esophagus. Continue Nexium 40 mg orally twice every day or Protonix 40 mg orally twice every day. 7. History of melanoma removed from the shoulder. In remission. 8. Depression. Continue Effexor 150 mg orally once every day. 9. Anxiety disorder. Continue Xanax 1 mg orally 2 times every day. 10. DVT prophylaxis. Continue heparin 5000 units subcutaneously every 12 hours. 11. GI prophylaxis. continue Protonix 40 mg orally twice every day. 12. Hypotension. Patient will be given a bolus of normal saline 1 L over one hour, and monitor the patient blood pressure very closely, hold losartan, continue metoprolol 50 mg orally twice every day and hold both for systolic blood pressure less than or equal to 100. Increase activity call me before sending the patient home with the blood pressure if not coming up. Objective - Vital Signs Vital signs: Vital Signs Temp 98.2 F 07/02/20 04:35 Pulse 69 07/02/20 04:35 Resp 16 07/02/20 04:35 BP 92/52 07/02/20 04:36 Pulse Ox 96 07/02/20 04:35 Intake & Output 07/01/20 07/02/20 07/02/20 18:59 06:59 18:59 Intake Total 1575 2560 Output Total 5 Balance 1570 2560 Weight 77.111 kg Intake: IV 1100 Intake, IV Titration 475 1600 Amount Lactated Ringers 1,000 ml 375 1500 @ 125 mls/hr IV .Q8H MEGHA Rx#:[id number] metroNIDAZOLE-NS PMX 500 100 100 mg In Saline 1 100ml.bag @ 100 mls/hr IVPB Q8HR MEGHA Rx#:[id number] Oral 960 Output: Estimated Blood Loss 5 Other: # Voids 3 - Labs CBC & Chem 7: 07/02/20 07:17 07/02/20 07:17 Labs: Abnormal Lab Results - Last 24 Hours (Table) 07/01/20 07/02/20 07/02/20 Range/Units 11:40 07:17 07:17 RBC 3.70 L (4.30-5.90) m/uL Hgb 11.8 L D (13.0-17.5) gm/dL Hct 32.4 L (39.0-53.0) % Sodium 135 L (137-145) mmol/L Potassium 3.2 L (3.5-5.1) mmol/L Total Protein 4.5 L (6.3-8.2) g/dL Albumin 2.5 L (3.5-5.0) g/dL Ur Specific [place] 1.049 H (1.001-1.035)
[2020-07-02 14:27] VITALS: BP 91/48; PULSE 83
== END 2020-07-02 14:50 | disposition home or self-care (01) ==
LOC: EC 06:03 → 5NMEDONC 08:15
PROVIDERS: ADMIT Surgery; ATTEND Surgery
DX: K35.80 Unspecified acute appendicitis (principal); I11.9 Hypertensive heart disease without heart failure; I25.10 Atherosclerotic heart disease of native coronary artery without angina pectoris; J44.9 Chronic obstructive pulmonary disease, unspecified; E78.5 Hyperlipidemia, unspecified; H91.90 Unspecified hearing loss, unspecified ear; K21.9 Gastro-esophageal reflux disease without esophagitis; M19.90 Unspecified osteoarthritis, unspecified site; K22.70 Barrett's esophagus without dysplasia; K44.9 Diaphragmatic hernia without obstruction or gangrene; F32.9 Major depressive disorder, single episode, unspecified; F41.9 Anxiety disorder, unspecified; N40.0 Benign prostatic hyperplasia without lower urinary tract symptoms; M47.816 Spondylosis without myelopathy or radiculopathy, lumbar region; F17.210 Nicotine dependence, cigarettes, uncomplicated; Z20.822 Contact with and (suspected) exposure to COVID-19; Z79.82 Long term (current) use of aspirin; Z79.899 Other long term (current) drug therapy; Z88.0 Allergy status to penicillin; Z88.8 Allergy status to other drugs, medicaments and biological substances; I25.2 Old myocardial infarction; Z85.820 Personal history of malignant melanoma of skin; Z95.5 Presence of coronary angioplasty implant and graft; Z98.890 Other specified postprocedural states; Z86.69 Personal history of other diseases of the nervous system and sense organs; Z82.49 Family history of ischemic heart disease and other diseases of the circulatory system; Z83.3 Family history of diabetes mellitus; Z80.9 Family history of malignant neoplasm, unspecified; Z84.89 Family history of other specified conditions; Z80.8 Family history of malignant neoplasm of other organs or systems; Z82.5 Family history of asthma and other chronic lower respiratory diseases
CPT/HCPCS: 96376; 96361; 96374; 96375; 99285; 36415; 88304; 80053 ×2; 82150; 83605; 83690; 85025 ×2; 81003; 87635; 74177; 44970; G0378 ×2; J2250; J1644 ×3; J2405; J0696 ×2; J2001; J3010; J1170 ×2; J1885; J2704; Q9967

== ENCOUNTER → 2021-03-22 | Outpatient (CLI) | payer BC, MEDICARE ==
--- NOTE | 2021-03-22 15:30 | NM ---
EXAMINATION TYPE: NM hepatobiliary w EF DATE OF EXAM: 03/22/2021 COMPARISON: CT 07/01/2020 HISTORY: 61-year-old male K82.8 Biliary dyskinesia TECHNIQUE: After the intravenous administration of 4.8 mCi Tc 99m Mebrofenin hepatobiliary scintigrap hy is performed. Immediate images post injection. FINDINGS: There is satisfactory initial accumulation of tracer by the liver. The gallbladder is visualized wit hin 4 minutes minutes. The small bowel activity is noted within 15 minutes. At one hour 8 ounces of oral ensure plus is given to mimic CCK and gallbladder ejection fraction is calculated at 62 %, in t he normal range. Therefore there is no scintigraphic evidence of cystic or common bile duct obstruct ion to suggest acute cholecystitis or gallbladder dyskinesia. IMPRESSION: No scintigraphic evidence for acute/chronic cholecystitis or biliary dyskinesia.
== END | disposition home or self-care (01) ==
LOC: RADNMMAIN 13:00
PROVIDERS: ATTEND Internal Medicine
DX: K82.8 Other specified diseases of gallbladder (principal)
CPT/HCPCS: 78226; A9537

== ENCOUNTER → 2021-05-01 | Outpatient (CLI) | payer BC, MEDICARE ==
--- NOTE | 2021-05-01 10:55 | CT ---
EXAMINATION TYPE: CT abdomen pelvis w con DATE OF EXAM: 05/01/2021 COMPARISON: CT dated 07/01/2020 HISTORY: Epigastric pain, history of hernia repair X 5 CT DLP: 665.30 mGycm Automated exposure control for dose reduction was used. TECHNIQUE: Helical acquisition of images was performed from the lung bases through the pelvis. CONTRAST: Performed without Oral Contrast and with IV Contrast, patient injected with 100 ml mL of Isovue 300. FINDINGS: LUNG BASES: No significant abnormality is appreciated. LIVER/GB: No significant abnormality is appreciated. PANCREAS: No significant abnormality is seen. SPLEEN: No significant abnormality is seen. ADRENALS: No significant abnormality is seen. KIDNEYS: No significant abnormality is seen. FREE AIR: No free air is visualized. RETROPERITONEAL ADENOPATHY: None visualized REPRODUCTIVE ORGANS: No significant abnormality is seen URINARY BLADDER: No significant abnormality is seen. PELVIC ADENOPATHY: None visualized. OSSEOUS STRUCTURES: L4-5 spinal fixation using 2 rods and 4 screws. No aggressive bone lesion. BOWEL: Diffuse wall thickening of the stomach, nonspecific. This could be due to nondistention howev er underlying lesion cannot be excluded, please correlate clinically. Further gastroscopy can be cons idered. Unremarkable duodenum and small bowel. Moderate fecal loading of the colon with scattered unc omplicated colonic diverticulosis. Interval appendicectomy. OTHER: Scattered arterial atherosclerotic calcifications. No sizable ascites. Possible small left fat -containing inguinal hernia with very small fat-containing umbilical hernia. IMPRESSION: No definite acute abnormality or suspicious lesion is seen in the abdomen or the pelvis. Nonspecific wall thickening of the stomach which could be due to nondistention however a small gastric lesion can not be excluded. Recommend clinical correlation. Further gastroscopy can be considered. Other inciden fer findings as described above.
== END | disposition home or self-care (01) ==
LOC: RADCTMAIN 09:59
PROVIDERS: ATTEND Internal Medicine
DX: K31.89 Other diseases of stomach and duodenum (principal)
CPT/HCPCS: 74177; Q9967

== ENCOUNTER → 2021-06-13 | Outpatient (CLI) | payer BC, MEDICARE ==
[2021-06-13 19:06] LABS: HCT 44.9 % (39.6-50.0); MCH 30.4 pg (27.0-32.0); MCHC 33.4 g/dL (32.0-37.0); MCV 91.1 fL (80.0-97.0); Mean Platelet Volume 10.4 fL (9.5-12.2); NRBC Per 100 WBC 0 /100 WBCS (0.0-0.0); Platelet Count 367 X 10*3/uL (140-440); RBC 4.93 X 10*6/uL (4.40-5.60); RDW 12.6 % (11.5-14.5); WBC 11.11 X 10*3/uL (4.50-10.00)
[2021-06-13 21:50] LABS: African American GFR (CKD) 80.3 (60.0-200.0); Anion Gap 12.2 mmol/L (10.00-18.00); Blood Urea Nitrogen 14.2 mg/dL (9.0-27.0); Non-African American GFR(CKD) 69.3 (60.0-200.0); Potassium 4.2 mmol/L (3.5-5.5)
== END | disposition home or self-care (01) ==
LOC: LABPAT 13:47
PROVIDERS: ATTEND Internal Medicine Interventional Cardiology
DX: Z01.812 Encounter for preprocedural laboratory examination (principal); R07.9 Chest pain, unspecified
CPT/HCPCS: 36415; 80051; 82565; 84520; 85027

== ENCOUNTER 2021-06-15 06:28 | Day surgery (SDC) | payer BC, MEDICARE ==
[2021-06-13 15:23] VITALS: BMI 24.4
[~2021-06-15 06:28] MED LIST changes: +ASPIRIN 325 MG TAB PO STA; +ATORVASTATIN 80 MG TAB PO STA; +HEPARIN SODIUM,PORCINE 10,000 UNIT in SODIUM CHLORIDE 0.9% 1,000 ML IRRIGATION PRN; +HEPARIN SODIUM,PORCINE 2,500 UNIT in SODIUM CHLORIDE 0.9% 250 ML IRRIGATION PRN; +NITROGLYCERIN SL TABS 0.4 MG TAB SUBLINGUAL PRN; -REGADENOSON 0.4 MG/5 ML SYRINGE IV PRN; +SODIUM CHLORIDE 0.9% 1,000 ML in EMPTY BAG 1 BAG IV SCH
[2021-06-15] MEDS ORDERED: SODIUM CHLORIDE 0.9% 1,000 ML IV ONE (06:50)
[2021-06-15 07:17] VITALS: RESP 16; TEMP 98.1
[2021-06-15] MEDS ORDERED: fentaNYL (PF) 50 MCG/ML 2 ML AMP IV ONE (07:59)
[2021-06-15] MEDS ORDERED: LIDOCAINE 1% INJ 10MG/ML (5 ML VIAL-PF) SQ ONE (08:04)
[2021-06-15] MEDS ORDERED: MIDAZOLAM 2 MG/2 ML VIAL IV ONE (08:05)
[2021-06-15] MEDS ORDERED: VERAPAMIL SYRINGE (5 MG/10 ML) INTRAARTER ONE (08:06)
[2021-06-15] MEDS ORDERED: HEPARIN SODIUM 1,000 UN/ML (10ML VL) IV ONE (08:11)
[2021-06-15] MEDS ORDERED: IOPAMIDOL-370 125ML BTL INJ ONE (08:18)
[2021-06-15] MEDS ORDERED: RX INFO: IV CONTRAST WAS GIVEN 1 EACH MISC MISCELLANE PRN (08:28)
[2021-06-15] MEDS ORDERED: SODIUM CHLORIDE 0.9% 1,000 ML IV SCH (08:30)
--- NOTE | 2021-06-15 08:33 | P.CARDCATH ---
Date of Procedure: 06/15/21 Description of Procedure: Cardiac Catheterization: The patient is a 61-year-old male with a known history of hypertension, hyperlipidemia and prior stenting of the LAD who presented was progressive chest discomfort initially exertional and now at rest. Recommendations were made regarding cardiac catheterization, the risks and the complications were discussed with the patient who is in full understanding and agreement. Procedure Description: Patient was brought to [facility] in fasting semi-sedated state after receiving Fentanyl and Benadryl achieiving moderate conscious sedated state. Using Xylocaine Anesthesia and Seldinger technique, a 6-Kazakh sheath was introduced in the left radial artery . Subsequently, selective coronary angiography performed using a 5-Kazakh 4 bend Rajni catheter. Multiple views of the coronary artery including hemiaxial views were obtained. The 5-Kazakh Pigtail catheter was used to cross the aortic valve and LVEDP was calculated. Following that, catheter and sheath were removed. Hemostasis was obtained with deployment of TR band . There was no immediate complication. Patient was returned to room in stable condition. Of note, the patient received a total of 4000 units of intravenous heparin as well as intra-arterial verapamil. There was no immediate complications. Findings: Left main: This is a short sized vessel, bifurcating into LAD and left circumflex, left main has no evidence of high-grade stenosis LAD: This is a large size vessel, reaching to the apex, the stented segment proximally has 10 to 20% in-stent restenosis, the mid vessel has no high-grade stenosis Left circumflex: This is a nondominant vessel giving rise to a large obtuse marginal branch has a 20% plaque in the midsegment the rest of the vessel has no high-grade stenosis RCA: This is a dominant vessel, bifurcating into PDA and PLV, the RCA has no high-grade stenosis [Left] Ventriculogram: Was not performed Hemodynamics: There was no gradient across the aortic valve, LVEDP 10-15 mmHg Conclusion: 1. No evidence of restenosis in the LAD 2. Mild disease in the LAD and circumflex 3. Right dominance Recommendations: I have recommended to continue medical therapy with aggressive coronary risks modifications and smoking cessation. Findings and recommendations were dis cussed with the patient and his family and they are in full understanding and agreement Duration of sedation is 16 minutes.
[2021-06-15 12:10] VITALS: BP 110/72; PULSE 58
[2021-06-15] MEDS ORDERED: PANTOPRAZOLE 40 MG TABLET PO SCH (17:30)
[2021-06-15] MEDS ORDERED: ALPRAZolam 0.5 MG TAB PO SCH (21:00)
[2021-06-15] MEDS ORDERED: traZODone HCL 100 MG TAB PO SCH (21:00)
[2021-06-15] MEDS ORDERED: METOPROLOL TARTRATE 25 MG TAB PO SCH (21:00)
[2021-06-15] MEDS ORDERED: CYCLOBENZAPRINE 10 MG TAB PO SCH (21:00)
[2021-06-16] MEDS ORDERED: ASPIRIN 81 MG PO SCH (09:00)
[2021-06-16] MEDS ORDERED: CHOLECALCIFEROL 25 MCG (1000 IU) TABLET PO SCH (09:00)
[2021-06-16] MEDS ORDERED: LOSARTAN 50 MG TAB PO SCH (09:00)
[2021-06-16] MEDS ORDERED: ASCORBIC ACID 500 MG TAB PO SCH (09:00)
[2021-06-16] MEDS ORDERED: VENLAFAXINE HCL ER 150 MG CAP PO SCH (09:00)
[2021-06-16] MEDS ORDERED: ATORVASTATIN 40 MG TAB PO SCH (09:00)
[2021-06-16] MEDS ORDERED: hydroCHLOROthiazide 25 MG TAB PO SCH (09:00)
== END 2021-06-15 12:03 | disposition home or self-care (01) ==
LOC: CATHCVL 06:28
PROVIDERS: ATTEND Internal Medicine Interventional Cardiology
DX: I25.110 Atherosclerotic heart disease of native coronary artery with unstable angina pectoris (principal); T82.855A Stenosis of coronary artery stent, initial encounter; I10 Essential (primary) hypertension; E78.00 Pure hypercholesterolemia, unspecified; E78.2 Mixed hyperlipidemia; Z20.822 Contact with and (suspected) exposure to COVID-19; F17.210 Nicotine dependence, cigarettes, uncomplicated; Z79.82 Long term (current) use of aspirin; Z79.899 Other long term (current) drug therapy; Z79.51 Long term (current) use of inhaled steroids; Z88.0 Allergy status to penicillin
CPT/HCPCS: 93458; 87635; C1894; C1769; J2250; J2001; J3010; J1644; Q9967

== ENCOUNTER 2021-12-02 11:32 | Emergency (ER) | payer BC, MEDICARE ==
[2021-12-02] MEDS ORDERED: SODIUM CHLORIDE 0.9% 1,000 ML IV STA (14:29)
[2021-12-02] MEDS ORDERED: ONDANSETRON 4 MG/2 ML VIAL IVP STA (14:29)
[2021-12-02] MEDS ORDERED: KETOROLAC 15 MG/ML 1 ML VIAL IVP STA (14:30)
[2021-12-02] MEDS ORDERED: FAMOTIDINE 20 MG/2 ML VIAL IV STA (14:30)
[2021-12-02] MEDS ORDERED: DEXAMETHASONE SOD PHOSPHATE 4 MG/ML 1 ML VIAL IVP STA (14:31)
[2021-12-02 15:37] LABS: Basophils # (A) 0.1 k/uL (0-0.2); Basophils % (A) 1 %; Eosinophils # (A) 0.1 k/uL (0-0.7); Eosinophils % (A) 1 %; HCT 40.9 % (39.0-53.0); HGB 14.3 gm/dL (13.0-17.5); Lymphocytes # (A) 1.2 k/uL (1.0-4.8); Lymphocytes % (A) 13 %; MCV 88.5 fL (80.0-100.0); Mean Platelet Volume 8.3; Monocytes # (A) 0.6 k/uL (0-1.0); Monocytes % (A) 6 %; Neutrophils # (A) 7.3 k/uL (1.3-7.7); Neutrophils % (A) 77 %; Platelet Count 215 k/uL (150-450); RBC 4.62 m/uL (4.30-5.90); RDW 12.7 % (11.5-15.5); WBC 9.4 k/uL (3.8-10.6)
[2021-12-02 15:48] LABS: Albumin 4.2 g/dL (3.5-5.0); Calcium 9.4 mg/dL (8.4-10.2); Potassium 3.7 mmol/L (3.5-5.1); Total Bilirubin 0.4 mg/dL (0.2-1.3); Total Protein 6.2 g/dL (6.3-8.2)
--- NOTE | 2021-12-02 15:48 | XR ---
EXAMINATION TYPE: XR chest 2V DATE OF EXAM: 12/02/2021 COMPARISON: 06/11/2020 HISTORY: Short of breath TECHNIQUE: 3 views FINDINGS: Heart is normal. Lungs are clear of infiltrate. No heart failure. There are no hilar masses . The bony thorax is intact. IMPRESSION: Normal chest. No change.
[2021-12-02 16:21] VITALS: BP 102/65; PULSE 68; RESP 18; TEMP 98.6
--- NOTE | 2021-12-02 16:24 | ED ---
General Adult HPI - General Chief complaint: Nausea/Vomiting/Diarrhea Stated complaint: Covid+, N/V/D, SOB Time Seen by Provider: 12/02/21 14:20 Source: patient, RN notes reviewed, old records reviewed Mode of arrival: ambulatory Limitations: no limitations - History of Present Illness Initial comments: Patient is a 61-year-old male with past medical history remarkable for COPD, body aches, vomiting, sore throat who is Covid-positive. Presents for mo noclonal antibody. States he has been tolerating oral intake. Was vaccinated. Endorses generalized body aches in addition to the symptoms above. Denies any shortness of breath. Denies any abdominal pain. Endorses nausea, nonbilious, emesis, as well as intermittent loose stool. Symptoms started approximately 4 days ago. He has no other acute complaints at this time. He is tolerating oral intake. Presents for further evaluation at this time. Denies fevers or chills. - Related Data Home Medications Medication Instructions Recorded Confirmed Atorvastatin [Lipitor] 40 mg PO DAILY 03/08/16 06/15/21 Aspirin [Adult Low Dose Aspirin EC] 81 mg PO DAILY 03/31/19 06/15/21 Losartan Potassium [Cozaar] 100 mg PO DAILY 03/31/19 06/15/21 ALPRAZolam [Xanax] 0.5 mg PO BID 07/01/20 06/15/21 Cyclobenzaprine [Flexeril] 10 mg PO DAILY 07/01/20 06/15/21 Esomeprazole Magnesium [NexIUM] 40 mg PO BID 07/01/20 06/15/21 Metoprolol Tartrate [Lopressor] 25 mg PO BID 07/01/20 06/15/21 Venlafaxine HCl ER [Effexor XR] 150 mg PO DAILY 07/01/20 06/15/21 hydroCHLOROthiazide 25 mg PO DAILY 07/01/20 06/15/21 Vitamin C(Dose Unknown) 1 tab PO DAILY 06/13/21 06/15/21 Vitamin D 3(Dose Unknown) 1 tab PO DAILY 06/13/21 06/15/21 traZODone HCL 100 mg PO HS 06/13/21 06/15/21 Previous Rx's Medication Instructions Recorded HYDROcodone/APAP 5-325MG [[place] 1 each PO Q6HR PRN #12 tab 07/02/20 5-325] dexAMETHasone [Decadron] 4 mg PO DAILY 5 Days #5 tab 12/02/21 Allergies Allergy/AdvReac Type Severity Reaction Status Date / Time lorazepam [From Ativan] Allergy Unknown Verified 06/13/21 15:11 Penicillins Allergy Rash/Hives Verified 06/13/21 15:11 Review of Systems ROS Statement: Those systems with pertinent positive or pertinent negative responses have been documented in the HPI. Review of Systems: CONST: Denies fever EYES: Denies blurry vision ENT: Endorses nasal congestion C/V: Denies Chest pain RESP: Denies shortness of breath GI: Denies abdominal pain : Denies dysuria SKIN: Denies rash. MSK: Endorses body aches NEURO: Denies headache ROS Other: All systems not noted in ROS Statement are negative. Past Medical History Past Medical History: Coronary Artery Disease (CAD), Cancer, Chest Pain / Angina, COPD, GERD/Reflux, Hearing Disorder / Deafness, Hyperlipidemia, Hypertension, Myocardial Infarction ([place]), Musculoskeletal Disorder, Oste oarthritis ([place]) Additional Past Medical History / Comment(s): Barretts esophagus, hiatal hernia, Melanoma CA removed from L shoulder, Herniated discs w/ back pain, hx Torn ret ivonne right eye. Last Myocardial Infarction Date:: FEB 2014 History of Any Multi-Drug Resistant Organisms: None Reported Past Surgical History: Back Surgery, Heart Catheterization, Heart Catheterization With Stent, Hernia Repair, Orthopedic Surgery Additional Past Surgical History / Comment(s): hilario foot surgery/achilles tendons, melanoma removed from left shoulder, a total of 5 bilateral inguinal he rnia repairs. Heart Cath w/ 2 stents Feb 2014., FATTY TUMOR REMOVED RIGHT BREAST AND LEG. EGD's. Colonoscopy. Past Anesthesia/Blood Transfusion Reactions: No Reported Reaction Additional Past Anesthesia/Blood Transfusion Reaction / Comment(s): . Date of Last Stent Placement:: FEB-2014 Past Psychological History: Anxiety, Depression Smoking Status: Current every day smoker - Past Family History Father Additional Family Medical History / Comment(s): mi in his 40's Mother Additional Family Medical History / Comment(s): . General Exam - General Exam Comments Initial Comments: General: Appears in no acute distress. HEAD: Normal with no signs of head trauma. EYES: PERRLA, EOMI, conjunctiva normal, no discharge. ENT: Hearing grossly intact, normal oropharynx. RESPIRATORY: Clear breath sounds bilaterally. No wheezes, rales, or rhonchi. No increased work of breathing. No hypoxia C/V: Regular rate and rhythm. S1 and S2 auscultated, no edema, peripheral pulses 2+ and intact throughout ABD: Abd is soft, nontender, nondistended EXT: Normal range of motion, no obvious deformity SKIN: No rashes or lesions observed on exposed skin. NEURO: Alert and oriented 4. Limitations: no limitations Course Vital Signs 12/02/21 12/02/21 12:37 16:20 Temperature 98.1 F 98.6 F Pulse Rate 77 68 Respiratory 16 18 Rate Blood Pressure 90/62 102/65 O2 Sat by Pulse 99 98 Oximetry Medical Decision Making - Medical Decision Making Based on the patient's presentation and physical exam, I do believe he has COVID-19 infection. He took a home test that was positive. Testing here was also positive. He has been having nausea and vomiting, did recommend that we obtain basic labs to evaluate for dehydration. He will receive a 1 L fluid bolus. He was in agreement this plan. I explained him that we do not have monoclonal antibodies unless you are high-risk , which the patient obviously is not. He expressed understanding. He does meet criteria for Paxil did therapy. I did offer him this which she accepted. I instructed him to stop taking his Xanax as well as statin until packs of it is completed. He was in agreement this plan. We'll also receive IV steroids due to his history of COPD as well as a prescription. Patient was in agreement this plan. Vital signs are remarkable for a soft initial blood pressure but was obtained over a sweatshirt. We'll continue to monitor, patient is not hypoxic, and has no respiratory distress. EKG showed no signs of acute ischemia. Laboratory studies were unremarkable except for positive Covid test. Chest x-ray showed no acute cardiopulmonary process. On reevaluation, patient is unchanged. Nausea is not present. He is tolerating oral intake. Blood pressure is improved. I believe it is safe for him to be discharged home. He was in agreement this plan. Was given instructions to isolate best he can for 5 days at home and him were mask until he is symptom- free. He was in agreement this plan. We'll obtain a pulse oximeter monitor oxygenation. Explained he should return if it is less than 90%. Patient will be given prescriptions for Paxlovid as a paper prescription. He will also receive a prescription for Decadron for 5 days. He was in agreement this plan. I will provide the patient with a prescription for Decadron, Paxlovid. I instructed the patient to follow up with their PCP in the next 1-3 days. I explained that the patient should return to the emergency department if they experience any worsening symptoms. Strict return precautions were discussed with the patient. The patient expressed understanding of these instructions. I answered all questions that the patient had. The patient was discharged home in good condition with their prescriptions and follow up information. - Lab Data Result diagrams: 12/02/21 15:28 12/02/21 15:32 Lab Results 12/02/21 12/02/21 12/02/21 Range/Units 12:44 15:28 15:32 WBC 9.4 (3.8-10.6) k/uL RBC 4.62 (4.30-5.90) m/uL Hgb 14.3 (13.0-17.5) gm/dL Hct 40.9 (39.0-53.0) % MCV 88.5 (80.0-100.0) fL MCH 31.0 (25.0-35.0) pg MCHC 35.0 (31.0-37.0) g/dL RDW 12.7 (11.5-15.5) % Plt Count 215 (150-450) k/uL MPV 8.3 Neutrophils % 77 % Lymphocytes % 13 % Monocytes % 6 % Eosinophils % 1 % Basophils % 1 % Neutrophils # 7.3 (1.3-7.7) k/uL Lymphocytes # 1.2 (1.0-4.8) k/uL Monocytes # 0.6 (0-1.0) k/uL Eosinophils # 0.1 (0-0.7) k/uL Basophils # 0.1 (0-0.2) k/uL Sodium 136 L (137-145) mmol/L Potassium 3.7 (3.5-5.1) mmol/L Chloride 98 (98-107) mmol/L Carbon Dioxide 24 (22-30) mmol/L Anion Gap 14 mmol/L BUN 18 (9-20) mg/dL Creatinine 1.16 (0.66-1.25) mg/dL Est GFR (CKD-EPI)AfAm 78 (>60 ml/min/1.73 sqM) Est GFR (CKD-EPI)NonAf 68 (>60 ml/min/1.73 sqM) Glucose 93 (74-99) mg/dL Calcium 9.4 (8.4-10.2) mg/dL Total Bilirubin 0.4 (0.2-1.3) mg/dL AST 31 (17-59) U/L ALT 38 (4-49) U/L Alkaline Phosphatase 63 (38-126) U/L Total Protein 6.2 L (6.3-8.2) g/dL Albumin 4.2 (3.5-5.0) g/dL Amylase 37 (30-110) U/L Lipase 110 (23-300) U/L Coronavirus (PCR) Detected A (Not Detectd) - EKG Data -: EKG Interpreted by Me EKG Comments: 12-lead Electrocardiogram Interpretation Note EKG was reviewed and interpreted by myself. 12-lead ECG performed at 1453 is interpreted by me as revealing [normal sinus rhythm] at a rate of 66 beats per minute. [place] is normal. NV intervals 169 ms, QRS duration is 104 ms, QTc is 408 ms.. [There were no ST or T wave abnormalities to suggest myocardial isch emia or injury]. [R wave progression across the precordium was satisfactory]. [By my interpretation this EKG is non-diagnostic for acute ischemia]. Unchanged when compared with Prior EKGs from 06/11/2020 Disposition Clinical Impression: COVID-19 virus infection Disposition: HOME SELF-CARE Condition: Good Instructions (If sedation given, give patient instructions): Acute Nausea and Vomiting (ED), COVID-19 (Coronavirus Disease 2019) (ED) Additional Instructions: You are COVID 19 positive. Isolate for 5 days after onset of symptoms and wear a mask when in public. Monitor oxygen on a pulse oximeter. Return for oxygenation less than 90%. Prescriptions: dexAMETHasone [Decadron] 4 mg PO DAILY 5 Days #5 tab Is patient prescribed a controlled substance at d/c from ED?: No Referrals: Emiliano Cheng MD [Primary Care Provider] - 1-2 days Time of Disposition: 16:10
== END 2021-12-02 16:47 | disposition home or self-care (01) ==
LOC: EC 11:32
DX: U07.1 COVID-19 (principal); J44.9 Chronic obstructive pulmonary disease, unspecified; K21.9 Gastro-esophageal reflux disease without esophagitis; E78.5 Hyperlipidemia, unspecified; I10 Essential (primary) hypertension; I25.2 Old myocardial infarction; I25.10 Atherosclerotic heart disease of native coronary artery without angina pectoris; Z79.82 Long term (current) use of aspirin; F17.200 Nicotine dependence, unspecified, uncomplicated; Z88.0 Allergy status to penicillin; Z88.8 Allergy status to other drugs, medicaments and biological substances
CPT/HCPCS: 36415; 93005; 80053; 82150; 83690; 85025; 87635; 71046; 99285; 96374; 96361; 96375; J1100; J2405; J1885

== ENCOUNTER 2021-12-07 10:08 | Emergency (ER) | payer MEDICARE ==
[2021-12-07 10:12] VITALS: BP 120/83; PULSE 75; TEMP 98.1
[2021-12-07] MEDS ORDERED: ONDANSETRON 4 MG/2 ML VIAL IVP STA (10:46)
[2021-12-07] MEDS ORDERED: KETOROLAC 15 MG/ML 1 ML VIAL IVP STA (10:46)
[2021-12-07] MEDS ORDERED: SODIUM CHLORIDE 0.9% 1,000 ML IV STA (10:46)
--- NOTE | 2021-12-07 11:00 | ED ---
General Adult HPI - General Chief complaint: Upper Respiratory Infection Stated complaint: URI Time Seen by Provider: 12/07/21 10:40 Source: patient, RN notes reviewed Mode of arrival: ambulatory Limitations: no limitations - History of Present Illness Initial comments: Patient is a 61-year-old male presents to the emergency room with complaints of shortness of breath, sore throat, nausea with vomiting and body aches. he reports taking Coricidin HBP last night which helps slightly with his sore throat but not taken any medications other than Paxlovid this morning which he consequently vomited after. He tested positive for COVID on 12/02/2021 and is COVID vaccinated. He is a current smoker and has a past medical history significant for COPD, CAD, GERD with Tran's esophagus, hyperlipidemia, hypertension, osteoarthritis and degenerative disc disease. - Related Data Home Medications Medication Instructions Recorded Confirmed Atorvastatin [Lipitor] 40 mg PO DAILY 03/08/16 06/15/21 Aspirin [Adult Low Dose Aspirin EC] 81 mg PO DAILY 03/31/19 06/15/21 Losartan Potassium [Cozaar] 100 mg PO DAILY 03/31/19 06/15/21 ALPRAZolam [Xanax] 0.5 mg PO BID 07/01/20 06/15/21 Cyclobenzaprine [Flexeril] 10 mg PO DAILY 07/01/20 06/15/21 Esomeprazole Magnesium [NexIUM] 40 mg PO BID 07/01/20 06/15/21 Metoprolol Tartrate [Lopressor] 25 mg PO BID 07/01/20 06/15/21 Venlafaxine HCl ER [Effexor XR] 150 mg PO DAILY 07/01/20 06/15/21 hydroCHLOROthiazide 25 mg PO DAILY 07/01/20 06/15/21 Vitamin C(Dose Unknown) 1 tab PO DAILY 06/13/21 06/15/21 Vitamin D 3(Dose Unknown) 1 tab PO DAILY 06/13/21 06/15/21 traZODone HCL 100 mg PO HS 06/13/21 06/15/21 Previous Rx's Medication Instructions Recorded HYDROcodone/APAP 5-325MG [[place] 1 each PO Q6HR PRN #12 tab 07/02/20 5-325] dexAMETHasone [Decadron] 4 mg PO DAILY 5 Days #5 tab 12/02/21 Ondansetron Odt [Zofran Odt] 4 mg PO Q8HR PRN 7 Days #21 tab 12/07/21 Allergies Allergy/AdvReac Type Severity Reaction Status Date / Time lorazepam [From Ativan] Allergy Unknown Verified 12/07/21 10:12 Penicillins Allergy Rash/Hives Verified 12/07/21 10:12 Review of Systems ROS Statement: Those systems with pertinent positive or pertinent negative responses have been documented in the HPI. ROS Other: All systems not noted in ROS Statement are negative. Past Medical History Past Medical History: Coronary Artery Disease (CAD), Cancer, Chest Pain / Angina, COPD, GERD/Reflux, Hearing Disorder / Deafness, Hyperlipidemia, Hypertension, Myocardial Infarction ([place]), Musculoskeletal Disorder, Osteoarthritis (OA) Additional Past Medical History / Comment(s): Barretts esophagus, hiatal hernia, Melanoma CA removed from L shoulder, Herniated discs w/ back pain, hx Torn retina right eye. Last Myocardial Infarction Date:: FEB 2014 History of Any Multi-Drug Resistant Organisms: None Reported Past Surgical History: Back Surgery, Heart Catheterization, Heart Catheterization With Stent, Hernia Repair, Orthopedic Surgery Additional Past Surgical History / Comment(s): hilario foot surgery/achilles tendons, melanoma removed from left shoulder, a total of 5 bilateral inguinal hernia repairs. Heart Cath w/ 2 stents Feb 2014., FATTY TUMOR REMOVED RIGHT B REAST AND LEG. EGD's. Colonoscopy. Past Anesthesia/Blood Transfusion Reactions: No Reported Reaction Additional Past Anesthesia/Blood Transfusion Reaction / Comment(s): . Date of Last Stent Placement:: FEB-2014 Past Psychological History: Anxiety, Depression Smoking Status: Current every day smoker Past Alcohol Use History: None Reported Past Drug Use History: None Reported - Past Family History Father Family Medical History: Myocardial Infarction ([place]) Additional Family Medical History / Comment(s): mi in his 40's Mother Family Medical History: Cancer Additional Family Medical History / Comment(s): . General Exam Limitations: no limitations General appearance: alert, in no apparent distress Head exam: Present: atraumatic, normocephalic, normal inspection Eye exam: Present: normal appearance, PERRL, EOMI. Absent: scleral icterus, conjunctival injection, periorbital swelling ENT exam: Present: normal exam, mucous membranes moist Neck exam: Present: normal inspection Respiratory exam: Present: decreased breath sounds. Absent: respiratory distress, wheezes, rales, rhonchi, stridor, accessory muscle use Cardiovascular Exam: Present: regular rate, normal rhythm, normal heart sounds. Absent: systolic murmur, diastolic murmur, rubs, gallop, clicks GI/Abdominal exam: Present: soft, normal bowel sounds. Absent: distended, tenderness, guarding, rebound, rigid Extremities exam: Present: normal inspection Back exam: Present: normal inspection Neurological exam: Present: alert, oriented X3, CN II-XII intact Psychiatric exam: Present: normal affect, normal mood Skin exam: Present: warm, dry, intact, normal color. Absent: rash Course Vital Signs 12/07/21 12/07/21 10:10 10:41 Temperature 98.1 F Pulse Rate 75 Respiratory 22 18 Rate Blood Pressure 120/83 O2 Sat by Pulse 96 Oximetry Medical Decision Making - Medical Decision Making 59-year-old male presenting with ongoing covert symptoms as being diagnosed with COVID on November night despite taking Paxil but. No evidence of fever, tachycardia or hypoxia. No indication for laboratory studies. Will check chest x-ray given shortness of breath and COPD history. We'll give IV fluids along with Zofran for nausea and Toradol for pain. Slightly improved symptoms after IV fluids and Toradol still with some mild nausea however no further emesis after Zofran. Chest x-ray without acute cardiopulmonary disease. Will discharge patient home with continued symptomatic management of Covid along with a prescription of Zofran for nausea. Case discussed with Dr. Hernandez. Disposition Clinical Impression: COVID-19 virus infection Disposition: HOME SELF-CARE Condition: Stable Instructions (If sedation given, give patient instructions): Upper Respiratory Infection (ED), COVID-19 (Coronavirus Disease 2019) (ED) Additional Instructions: Please quarantine for 5 days after testing positive and restart quarantine if symptoms worsen. Please utilize Tylenol as needed for fevers and pain. Taking vitamin C, Zinc, vitamin D 50 mcg, and melatonin may help symptom recovery. Utilize Zofran prescription as needed for nausea/vomiting. Continue good oral fluid intake with water and sports drinks such as Gatorade as needed. Please return to the Emergency Department if symptoms worsen or any other concerns. Prescriptions: Ondansetron Odt [Zofran Odt] 4 mg PO Q8HR PRN 7 Days #21 tab PRN Reason: Nausea Is patient prescribed a controlled substance at d/c from ED?: No Referrals: Emiliano Cheng MD [Primary Care Provider] - 1-2 days Time of Disposition: 12:18
[2021-12-07 11:09] VITALS: RESP 18
--- NOTE | 2021-12-07 11:47 | XR ---
EXAMINATION TYPE: XR chest 2V DATE OF EXAM: 12/07/2021 COMPARISON: Chest x-ray 12/02/[address] 01/27/2015 HISTORY: Short of breath TECHNIQUE: Frontal and lateral views of the chest are obtained. FINDINGS: There is no focal air space opacity, pleural effusion, or pneumothorax seen. The cardiac silhouette size is within normal limits. The osseous structures are intact, there is thoracic spond ylosis. Prominent lung volumes suggest underlying COPD. IMPRESSION: No acute cardiopulmonary process. Emphysema.
== END 2021-12-07 12:30 | disposition home or self-care (01) ==
LOC: EC 10:08
DX: U07.1 COVID-19 (principal); F17.200 Nicotine dependence, unspecified, uncomplicated; I25.10 Atherosclerotic heart disease of native coronary artery without angina pectoris; J44.9 Chronic obstructive pulmonary disease, unspecified; K21.9 Gastro-esophageal reflux disease without esophagitis; H91.90 Unspecified hearing loss, unspecified ear; E78.5 Hyperlipidemia, unspecified; I10 Essential (primary) hypertension; I25.2 Old myocardial infarction; Z88.0 Allergy status to penicillin; Z88.8 Allergy status to other drugs, medicaments and biological substances; Z79.82 Long term (current) use of aspirin
CPT/HCPCS: 71046; 99284; 96374; 96375; 96361; J2405; J1885

== ENCOUNTER → 2022-09-27 | Outpatient (CLI) | payer MEDICARE ==
--- NOTE | 2022-09-30 07:38 | CTL ---
EXAMINATION TYPE: CT Low Dose Lung DATE OF EXAM: 09/27/2022 4:56 PM CLINICAL INDICATION:Male, 62 years old with history of Z12.2 ENCNTR SCREEN FOR MALIGNANT NEOPLAS ,F17 .210; personal tobacco use , history of tobacco use. COMPARISON: 01/27/2015. TECHNIQUE: Multiple axial non-contrast scans were obtained from approximately the lung apices through the upper abdomen. Coronal and sagittal reformatted images were obtained. Low dose technique was uti lized. CT DLP: 93.5 mGycm, Automated exposure control for dose reduction was used. CT Contrast: Contrast used: None Oral contrast used: None FINDINGS: ======== Lack of intravenous contrast and low dose technique limits the evaluation of the vascular and soft ti ssue structures. LUNGS: No evidence of pulmonary fibrosis. No evidence of focal consolidation, pneumothorax or pleural effusion. Mild paraseptal emphysema changes are seen throughout the lungs. Nodules: RUL: None. RML: None. RLL: 5 mm series 6 image 30, stable, calcified nodule series 6 image 22. RUBEN: None. LLL: None. AIRWAY: Patent and unremarkable. HEART: Size within normal limits. Increased density within the left anterior descending coronary juju ry, correlate for stent versus atherosclerotic disease. MEDIASTINUM: No gross evidence of adenopathy. VASCULATURE: No aortic aneurysm. MUSCULOSKELETAL: No acute osseous abnormalities SOFT TISSUES/LYMPH NODES: Unremarkable. LOWER NECK: No significant findings. UPPER ABDOMEN: No significant findings. IMPRESSION: 1. No clinically significant pulmonary nodules. 2. Mild emphysema CT LUNG RAD AND CT CHEST RECOMMENDATION: Lung-Rad 2 Benign Appearance or Behavior: Continue annual sc reening with LDCT in 12 months. S Modifier (other clinically significant findings): None Recommend smoking cessation (if current smoker), or continuation of smoking cessation (if prior smoke r). Annual screening for lung cancer with low-dose computed tomography is recommended in adults ages 55 to 77 years who have a 30 pack-year smoking history and currently smoke or have quit within the pa st 15 years. Screening should be discontinued once a person has not smoked for 15 years or develops a health problem that substantially limits life expectancy or the ability or willingness to have curat sean lung surgery. Lung rads 2021 [email or web address]
== END | disposition home or self-care (01) ==
LOC: RADCTMAIN 16:33
PROVIDERS: ATTEND Internal Medicine
DX: Z12.2 Encounter for screening for malignant neoplasm of respiratory organs (principal); J43.9 Emphysema, unspecified; F17.210 Nicotine dependence, cigarettes, uncomplicated
CPT/HCPCS: 71271